=== PATIENT | female | born 1960 ===

== ENCOUNTER 2016-07-18 09:17 | Emergency (ER) | payer BC, OTHER ==
[2016-07-18 09:27] VITALS: TEMP 98
--- NOTE | 2016-07-18 10:05 | ED PDOC ---
HPI: Back Time Seen by Provider: 07/18/16 09:20 Chief Complaint (Nursing): Back Pain Chief Complaint (Provider): Back Pain History Per: Patient History/Exam Limitations: no limitations Onset/Duration Of Symptoms: Days (x1 month; worsened today) Current Symptoms Are (Timing): Still Present Additional Complaint(s): 55 y/o female with a past medical history of high cholesterol, hypertension, thyroid disease and back pain who presents to the emergency department with a complaint of left lower back pain radiating to the left leg x3 month that worsened today. Reports using hot towels and taking ibuprofen without the relief of symptoms. Denies injury, fall, numbness, tingling, incontinence, abdominal pain, constipation, chest pain, or shortness of breath. PMD: Maya SINEGR Past Medical History Reviewed: Historical Data, Nursing Documentation, Vital Signs Vital Signs: Last Vital Signs Temp 98 F 07/18/16 09:26 Pulse 99 H 07/18/16 09:26 Resp 20 07/18/16 09:26 BP 131/79 07/18/16 09:26 Pulse Ox 98 07/18/16 09:26 - Medical History PMH: Back Problems, HTN Other PMH: thyroid dz - Surgical History Surgical History: No Surg Hx - Family History Family History: States: Unknown Family Hx - Social History Current smoker - smoking cessation education provided: No Alcohol: None Drugs: Denies - Home Medications Home Medications: Ambulatory Orders Medication Instructions Recorded Ibuprofen [Motrin] 600 mg PO TID 7 Days 07/18/16 - Allergies Allergies/Adverse Reactions: Allergies Allergy/AdvReac Type Severity Reaction Status Date / Time No Known Allergies Allergy Verified 07/18/16 09:31 Review of Systems ROS Statement: Except As Marked, All Systems Reviewed And Found Negative Cardiovascular: Negative for: Chest Pain Respiratory: Negative for: Shortness of Breath Gastrointestinal: Negative for: Abdominal Pain Genitourinary Female: Negative for: Incontinence Musculoskeletal: Positive for: Back Pain (Left lower), Leg Pain (radiation pain to left leg) Neurological: Negative for: Weakness, Numbness (or tingling), Dizziness Physical Exam - Reviewed Nursing Documentation Reviewed: Yes Vital Signs Reviewed: Yes - Physical Exam Appears: Positive for: Non-toxic, No Acute Distress Head Exam: Positive for: ATRAUMATIC, NORMOCEPHALIC Skin: Positive for: Normal Color, Warm, Dry Neck: Positive for: Normal, Supple Cardiovascular/Chest: Positive for: Regular Rate, Rhythm. Negative for: Murmur Respiratory: Positive for: Normal Breath Sounds. Negative for: Accessory Muscle Use, Respiratory Distress Gastrointestinal/Abdominal: Positive for: Normal Exam, Soft. Negative for: Tenderness Back: Negative for: Normal Inspection (Mild tenderness to the left lower back pain lateral and into the buttock), L CVA Tenderness, R CVA Tenderness, Vertebral Tenderness (or edema) Extremity: Positive for: Other (Positive straight leg raise at 30 degrees left) . Negative for: Normal ROM (Negative right straight leg raise), Pedal Edema, Swelling Neurologic/Psych: Positive for: Alert, Oriented - ECG O2 Sat by Pulse Oximetry: 98 (RA) Pulse Ox Interpretation: Normal - Progress ED Course And Treament: 1058: Stable. AAOx3. Pain free. Tolerated PO. Ambulated with no issues. at bedside and will take pt. home. Medical Decision Making Medical Decision Making: Time: 9:20 Initial impression: Back Pain Initial plan: --Toradol 10 mg IM --Valium 5 mg PO --Revaluation Scribe Attestation: Documented by Ktahrin Nieves, acting as a scribe for Joseph Garza MD. Provider Scribe Attestation: All medical record entries made by the Scribe were at my direction and personally dictated by me. I have reviewed the chart and agree that the record accurately reflects my personal performance of the history, physical exam, medical decision making, and the department course for this patient. I have also personally directed, reviewed, and agree with the discharge instructions and disposition. Disposition - Clinical Impression Clinical Impression: Low back pain - Patient ED Disposition Is Patient to be Admitted: No Counseled Patient/Family Regarding: Diagnosis, Need For Followup, Rx Given - Disposition Referrals: [facility]Outside] - 07/20/16 Disposition: Routine/Home Disposition Time: 10:59 Condition: STABLE Additional Instructions: Return if not better in 3 days. Prescriptions: Ibuprofen [Motrin] 600 mg PO TID 7 Days Instructions: Chronic Back Pain (ED) Print Language: [place]LAND[place]
[2016-07-18 11:14] VITALS: BP 125/79; PULSE 81; RESP 14; O2SAT 99
== END 2016-07-18 11:10 | disposition home or self-care (01) ==
LOC: H.ER 09:17
DX: M54.9 Dorsalgia, unspecified (principal); E07.9 Disorder of thyroid, unspecified; E78.00 Pure hypercholesterolemia, unspecified; I10 Essential (primary) hypertension; M79.605 Pain in left leg

== ENCOUNTER 2016-07-24 11:28 | Emergency (ER) | payer OTHER ==
[2016-07-24 11:40] VITALS: BP 128/81; PULSE 108; RESP 18; TEMP 98.2; O2SAT 98
[2016-07-24] MEDS ORDERED: Oxycodone/Acetaminophen 5/325 mg Tab ONE (12:03)
[2016-07-24] MEDS ORDERED: Oxycodone/Acetaminophen 5/325 mg Tab PO STA (12:05)
--- NOTE | 2016-07-24 12:05 | ED PDOC ---
HPI: Back Chief Complaint (Nursing): Back Pain Chief Complaint (Provider): Back Pain History Per: Patient Additional Complaint(s): Pt is a 55 yo female, reports a PMH of HTN, presents to ED with multiple somatic complaints. Pt rpeorts the most severe are a chronic lower back pain, with pain radiatind down to left leg. Pt also notes, 'separate" pain to left ankle. Pain has been present x1 month, worsened x1 week. Denies injury. Reports taking medication, Tylenol, without relief. No chest pain or SOB at anytime. no calf pain Past Medical History Reviewed: Nursing Documentation, Vital Signs Vital Signs: Last Vital Signs Temp 98.2 F 07/24/16 11:35 Pulse 108 H 07/24/16 11:35 Resp 18 07/24/16 11:35 BP 128/81 07/24/16 11:35 Pulse Ox 98 07/24/16 11:35 - Medical History PMH: Back Problems, HTN - Family History Family History: States: Unknown Family Hx - Living Arrangements Living Arrangements: With Family - Social History Current smoker - smoking cessation education provided: No Alcohol: None Drugs: Denies - Home Medications Home Medications: Ambulatory Orders Medication Instructions Recorded Ibuprofen [Motrin] 600 mg PO TID 7 Days 07/18/16 traMADol [Ultram] 50 mg PO Q6 #15 tab 07/24/16 - Allergies Allergies/Adverse Reactions: Allergies Allergy/AdvReac Type Severity Reaction Status Date / Time No Known Allergies Allergy Verified 07/18/16 09:31 Review of Systems ROS Statement: Except As Marked, All Systems Reviewed And Found Negative Musculoskeletal: Positive for: Back Pain Physical Exam - Reviewed Nursing Documentation Reviewed: Yes Vital Signs Reviewed: Yes - Physical Exam Appears: Positive for: Well, Non-toxic, No Acute Distress Head Exam: Positive for: ATRAUMATIC, NORMAL INSPECTION, NORMOCEPHALIC Skin: Positive for: Normal Color, Warm, DRY Eye Exam: Positive for: EOMI, Normal appearance, PERRL ENT: Positive for: Normal ENT Inspection Neck: Positive for: Normal, Painless ROM Cardiovascular/Chest: Positive for: Regular Rate, Rhythm Respiratory: Positive for: CNT, Normal Breath Sounds Gastrointestinal/Abdominal: Positive for: Normal Exam, Bowel Sounds, Soft Back: Positive for: Normal Inspection. Negative for: L CVA Tenderness, R CVA Tenderness, Vertebral Tenderness Extremity: Positive for: Normal ROM. Negative for: Tenderness, Deformity, Swelling Neurologic/Psych: Positive for: Alert, Oriented - ECG O2 Sat by Pulse Oximetry: 98 Medical Decision Making Medical Decision Making: Pt administered Motrin and Percocet for pain with good relief obtained repeat pulse; 82 U.Dip (-) blood, or nites (+) Leuks UA and UC sent XR Hip, Pelvis, ankle and foot on left: NAD, as read by LUPE Pt educated on results and demonstrated full undersigning Disposition - Clinical Impression Clinical Impression: Back pain, Hip pain - Patient ED Disposition Is Patient to be Admitted: No - Disposition Disposition: Routine/Home Disposition Time: 14:49 Condition: GOOD Prescriptions: traMADol [Ultram] 50 mg PO Q6 #15 tab Instructions: Arthralgia (ED), Back Pain (ED) - POA Present On Arrival: None
--- NOTE | 2016-07-24 12:57 | RAD ---
PROCEDURE: Left Hip X-ray Radiographs. HISTORY: pain COMPARISON: None. FINDINGS: BONES: The pelvic ring is intact. No fracture. JOINTS: Normal. SOFT TISSUES: Normal. OTHER FINDINGS: None. IMPRESSION: Normal examination.
[2016-07-24 13:21] LABS: RBC URINE 3 /hpf (0-3); URINE BILIRUBIN NEGATIVE (NEGATIVE); URINE BLOOD SMALL (NEGATIVE); URINE COLOR YELLOW (YELLOW); URINE GLUCOSE (UA) NEG (Normal); URINE KETONE NEGATIVE (NEGATIVE); URINE LEUKOCYTE ESTERASE TRACE Leu/uL (Negative); URINE PROTEIN 30 mg/dL (NEGATIVE); URINE UROBILINOGEN 0.2-1.0 mg/dL (0.2-1.0); WBC URINE 10 /hpf (0-5)
--- NOTE | 2016-07-24 14:20 | RAD ---
PROCEDURE: Left Ankle Radiographs. HISTORY: Pain COMPARISON: None FINDINGS: BONES: Bone alignment and mineralization are normal. There is acute fracture or dislocation. JOINTS: Normal. No osteoarthritis. Ankle mortise maintained. Talar dome intact SOFT TISSUES: Normal. OTHER FINDINGS: None. IMPRESSION: No acute fracture or dislocation.
--- NOTE | 2016-07-24 14:21 | RAD ---
PROCEDURE: Left Foot Radiographs. HISTORY: Pain COMPARISON: None. FINDINGS: BONES: Bone alignment and mineralization are normal. There is no acute fracture or bone destruction. JOINTS: The joint spaces are preserved. SOFT TISSUES: Normal. OTHER FINDINGS: None. IMPRESSION: No acute fracture or dislocation.
== END 2016-07-24 14:58 | disposition home or self-care (01) ==
LOC: H.ER 11:28
DX: M54.9 Dorsalgia, unspecified (principal); M25.572 Pain in left ankle and joints of left foot; M79.672 Pain in left foot; M25.552 Pain in left hip; I10 Essential (primary) hypertension; G89.29 Other chronic pain

== ENCOUNTER 2016-08-03 06:04 | Inpatient (IN) | payer OTHER ==
[2016-08-03 06:04] VITALS: BMI 27.3
[2016-08-03] MEDS ORDERED: Oxycodone/Acetaminophen 5/325 mg Tab PO ONE (06:57)
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
[2016-08-03] MEDS ORDERED: Sodium Chloride 0.9% 1,000 ML IV STA (07:23)
--- NOTE | 2016-08-03 07:24 | ED PDOC ---
- ECG O2 Sat by Pulse Oximetry: 98 Disposition - Clinical Impression Clinical Impression: Closed displaced spiral fracture of shaft of left humerus - POA Present On Arrival: None - Disposition Disposition: Admitted as In-Patient Disposition Time: 07:24 Condition: FAIR
[2016-08-03 08:02] LABS: BASO # 0.1 K/uL (0.0-0.2); BASO % 0.6 % (0.0-2.0); EOS # 0.1 K/uL (0.0-0.7); EOS % 0.7 % (0.0-4.0); HEMATOCRIT 36.7 % (34.0-47.0); LYMPH # 1.1 K/uL (1.0-4.3); LYMPH % 8.3 % (20.0-40.0); MEAN CELL VOLUME 78.2 fl (81.0-99.0); MEAN CORPUSCULAR HEMOGLOBIN 26.3 pg (27.0-31.0); MEAN CORPUSCULAR HGB CONC 33.7 g/dL (33.0-37.0); MEAN PLATELET VOLUME 7.3 fl (7.2-11.7); MONO # 0.9 K/uL (0.0-0.8); MONO % 6.5 % (0.0-10.0); NEUT # 11.4 K/uL (1.8-7.0); NEUT % 83.9 % (50.0-75.0); NRBC % 0.1 % (0.0-0.0); PLATELET COUNT 422 K/uL (130-400); RED CELL DISTRIBUTION WIDTH 16.2 % (11.5-14.5); WHITE BLOOD COUNT 13.6 K/uL (4.8-10.8)
[2016-08-03 08:16] LABS: ALB/GLOB RATIO 0.7 (1.0-2.1); ALKALINE PHOSPHATASE 106 U/L (38-126); ALT/SGPT 27 U/L (9-52); AST/SGOT 36 U/L (14-36); BILIRUBIN,TOTAL 0.7 mg/dl (0.2-1.3); BLOOD UREA NITROGEN 12 mg/dl (7-17); CALCIUM 9.8 mg/dL (8.4-10.2); CARBON DIOXIDE 28 mmol/L (22-30); CHLORIDE 99 mmol/L (98-107); GFR AFRICAN-AMERICAN > 60; GLUCOSE,RANDOM 111 mg/dL (65-105); POTASSIUM 3.4 MMOL/L (3.6-5.0); SODIUM 143 mmol/l (132-148); TOTAL PROTEIN 7.8 G/DL (6.3-8.2)
[2016-08-03] MEDS ORDERED: Azithromycin 500 MG in Sodium Chloride 0.9% 250 ML IVPB STA (08:24)
[2016-08-03] MEDS ORDERED: Potassium CL 10mEq/100ml 100 ML IVPB ONE (08:56)
[2016-08-03] MEDS ORDERED: cefTRIAXone (Rocephin) 1 gm Inj ONE (09:00)
--- NOTE | 2016-08-03 09:02 | RAD ---
HISTORY: Cough, back pain. Portable supine study 07:55. COMPARISON: No prior. FINDINGS: LUNGS: Dense row lower lobe infiltrate with air bronchograms likely reflective of acute pneumonia. PLEURA: No significant pleural effusion identified, no pneumothorax apparent. CARDIOVASCULAR: Normal. OSSEOUS STRUCTURES: No significant abnormalities. VISUALIZED UPPER ABDOMEN: Normal. OTHER FINDINGS: None. IMPRESSION: Dense right lower lobe infiltrate with air bronchograms consistent with pneumonia.
[2016-08-03 10:08] LABS: VENOUS BLOOD GAS BASE EXCESS 6.1 mmol/L (0.0-2.0); VENOUS BLOOD GAS PCO2 38 mmHg (40-60)
--- NOTE | 2016-08-03 10:47 | CARD ---
APPROVED REPORT EKG Measurement Heart [id number] <Conclusion> Sinus tachycardia Otherwise normal ECG
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
[2016-08-03] MEDS: Oxycodone/Acetaminophen 5/325 mg Tab PO PRN ×3 (13:02→22:31)
[2016-08-03 14:12] LABS: BASOPHIL 1 % (0-2); NEUTROPHIL 81 % (42-75); REACTIVE LYMPHOCYTES 1 % (0-0); TOTAL CELLS COUNTED 100
--- NOTE | 2016-08-03 14:55 | CT ---
CT chest without IV contrast Indication: Pulmonary infiltrate Technique: Contiguous axial images were obtained through the chest without intravenous contrast enhancement. Sagittal and coronal reconstructions were generated and reviewed. This CT exam was performed using 1 or more of the falling dose reduction techniques: Automated exposure control, adjustment of the MAA and/or kV according to patient size, and/or use of iterative reconstruction technique. Radiation dose (DLP): 517.87 MGy-cm. Comparison: Chest x-ray performed 08/03/16 Findings: Visualized portions of the inferior thyroid gland appear unremarkable. The unenhanced mediastinal and hilar vascular structures appear grossly unremarkable. The heart appears within normal limits of size. Enlarged 1.6 cm right pretracheal lymph node (series 2, image 26). Additional enlarged pre tracheal and sub carinal adenopathy. Please note that lack of IV contrast limits evaluation for adenopathy, in particular hilar adenopathy. Small left lower lobe consolidation. Larger right middle and right lower lobe consolidations. The right middle and lower lobe bronchi appear attenuated. No pleural effusion. No pneumothorax. Limited visualization of the noncontrast upper abdomen demonstrates right adrenal gland hypertrophy. Punctate left hepatic lobe calcification, likely granuloma. Mild curvature of the thoracic spine. Impression: Enlarged 1.6 cm right pretracheal lymph node (short axis). Additional enlarged pre tracheal and sub carinal adenopathy. Please note that lack of IV contrast limits evaluation for adenopathy, in particular hilar adenopathy. Small left lower lobe consolidation. Larger right middle and lower lobe consolidations. The right middle and lower lobe bronchi appear attenuated. Atelectasis is favored, however component of pneumonia is not excluded. Recommend follow-up to ensure complete resolution and exclude underlying neoplasm. Suggest bronchoscopy if indicated.
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
[2016-08-03 19:27] LABS: RBC URINE 4 /hpf (0-3); URINE BILIRUBIN NEGATIVE (NEGATIVE); URINE BLOOD SMALL (NEGATIVE); URINE COLOR YELLOW (YELLOW); URINE GLUCOSE (UA) NEG (Normal); URINE KETONE 20 mg/dL (NEGATIVE); URINE LEUKOCYTE ESTERASE NEG Leu/uL (Negative); URINE PROTEIN NEGATIVE (NEGATIVE); URINE UROBILINOGEN 0.2-1.0 mg/dL (0.2-1.0); WBC URINE 3 /hpf (0-5)
[2016-08-03] MEDS: guaiFENesin 600 mg ER Tab PO SCH (21:24)
[2016-08-03] MEDS: Albuterol 0.083% Inhal Sol (2.5 mg/3 mL) UD INH SCH (21:51)
[2016-08-03] MEDS: Acetylcysteine 10% 4 ML IH SCH (21:51)
[2016-08-04] MEDS: Oxycodone/Acetaminophen 5/325 mg Tab PO PRN ×5 (02:20→22:38)
[2016-08-04 07:07] LABS: BASO # 0.1 K/uL (0.0-0.2); BASO % 0.5 % (0.0-2.0); EOS # 0.1 K/uL (0.0-0.7); EOS % 1.1 % (0.0-4.0); HEMATOCRIT 34.1 % (34.0-47.0); LYMPH # 1.3 K/uL (1.0-4.3); LYMPH % 11.4 % (20.0-40.0); MEAN CELL VOLUME 78.2 fl (81.0-99.0); MEAN CORPUSCULAR HEMOGLOBIN 26.4 pg (27.0-31.0); MEAN CORPUSCULAR HGB CONC 33.8 g/dL (33.0-37.0); MEAN PLATELET VOLUME 7.2 fl (7.2-11.7); MONO # 0.8 K/uL (0.0-0.8); MONO % 6.7 % (0.0-10.0); NEUT # 9.2 K/uL (1.8-7.0); NEUT % 80.3 % (50.0-75.0); NRBC % 0.1 % (0.0-0.0); RED CELL DISTRIBUTION WIDTH 16.3 % (11.5-14.5); WHITE BLOOD COUNT 11.4 K/uL (4.8-10.8)
[2016-08-04 07:17] LABS: BLOOD UREA NITROGEN 13 mg/dl (7-17); CALCIUM 9.1 mg/dL (8.4-10.2); CARBON DIOXIDE 28 mmol/L (22-30); CHLORIDE 102 mmol/L (98-107); CHOLESTEROL 182 mg/dL (0-199); GFR AFRICAN-AMERICAN > 60; GLUCOSE,RANDOM 105 mg/dL (65-105); POTASSIUM 3.6 MMOL/L (3.6-5.0); SODIUM 142 mmol/l (132-148)
[2016-08-04 07:47] LABS: THYROID STIMULATING HORMONE 8.09 mIU/ML (0.46-4.68)
[2016-08-04] MEDS: Acetylcysteine 10% 4 ML IH SCH ×2 (07:50→20:01)
[2016-08-04] MEDS: Albuterol 0.083% Inhal Sol (2.5 mg/3 mL) UD INH SCH ×2 (07:50→20:01)
[2016-08-04] MEDS ORDERED: Azithromycin 500 MG in Sodium Chloride 0.9% 250 ML IVPB SCH (09:00)
[2016-08-04] MEDS: guaiFENesin 600 mg ER Tab PO SCH ×2 (09:19→21:15)
[2016-08-04] MEDS: Enoxaparin 40 mg Syringe SC SCH (09:19)
[2016-08-04] MEDS: Pantoprazole 40 mg EC Tab PO SCH (09:20)
--- NOTE | 2016-08-04 09:46 | CARD ---
APPROVED REPORT EXAM: Two-dimensional and M-mode echocardiogram with Doppler and color Doppler. Other Information Quality : AverageRhythm : Tachycardia Technically limited study due to Fractured Lt Arm. INDICATION Pre-Op 2D DIMENSIONS IVSd0.89 (0.7-1.1cm)LVDd4.13 (3.9-5.9cm) LVOT Diameter1.84 (1.8-2.4cm)PWd0.83 (0.7-1.1cm) IVSs1.11 (0.8-1.2cm)LVDs2.44 (2.5-4.0cm) FS (%) 41.0 %PWs1.28 (0.8-1.2cm) M-Mode DIMENSIONS Left Atrium (MM)2.99 (2.5-4.0cm)IVSd0.90 (0.7-1.1cm) Aortic Root2.57 (2.2-3.7cm)LVDd4.17 (4.0-5.6cm) Aortic Cusp Exc.1.85 (1.5-2.0cm)PWd1.08 (0.7-1.1cm) IVSs1.52 cmFS (%) 48 % LVDs2.19 (2.0-3.8cm)PWs1.54 cm Mitral Valve E/A ratio0.0 TDI E/Lateral E'0.0E/Medial E'0.0 Pulmonary Valve PV Peak Useyohrb567.5cm/s LEFT VENTRICLE The left ventricle is normal size. There is normal left ventricular wall thickness. Left ventricle systolic function is normal. The Ejection Fraction is >70%. There is normal LV segmental wall motion. Transmitral Doppler flow pattern is Grade I-abnormal relaxation pattern. RIGHT VENTRICLE The right ventricle is normal size. There is normal right ventricular wall thickness. The right ventricular systolic function is normal. ATRIA The left atrium size is normal. The right atrium size is normal. AORTIC VALVE The aortic valve is normal in structure and function. No aortic regurgitation is present. There is no aortic valvular stenosis. MITRAL VALVE The mitral valve is normal in structure and function. There is no evidence of mitral valve prolapse. There is no mitral valve stenosis. There is no mitral valve regurgitation noted. TRICUSPID VALVE The tricuspid valve is normal in structure and function. There is no tricuspid valve regurgitation noted. PULMONIC VALVE The pulmonary valve is normal in structure and function. There is no pulmonic valvular regurgitation. GREAT VESSELS The aortic root is normal in size. Due to poor image quality, the IVC could not be assessed. PERICARDIAL EFFUSION The pericardium appears normal. <Conclusion> Suboptimal images due to a bandaged and painful Lt upper arm The left ventricle is normal size. There is normal left ventricular wall thickness. There is normal LV segmental wall motion. Left ventricle systolic function is normal. The Ejection Fraction is >70%. Transmitral Doppler flow pattern is Grade I-abnormal relaxation pattern.
--- NOTE | 2016-08-04 10:20 | CP.PCM.PN ---
Subjective - Date & Time of Evaluation Date of Evaluation: 08/04/16 Time of Evaluation: 10:14 - Subjective Subjective: Her son is present at the bedside. She appears relatively comfortable while immobile. Her vital signs have been stable and she remains afebrile. Her leukocytosis has decreased slightly. As per her son she has been expectorating small quantities of yellow/green, purulent appearing sputum. She does not complain of shortness of breath or chest pain. Anteriorly the lungs are clear on auscultation. Posteriorly there are few rales in the right lower lobe w/o bronchial breath sounds today. There are no wheezes or egophony today (the latter was present in the RLL yesterday). A repeat CXR is scheduled for tomorrow. She does appear to be stable for surgical intervention of the LUE. Will start incentive spirometry today. As far as I can see in the EMR she has received only one aerosol treatment last night, and CPT has not yet been started. I will speak to her nurse regarding this. Objective - Vital Signs/Intake and Output Vital Signs (last 24 hours): Temp Pulse Resp BP Pulse Ox 98.3 F 96 H 18 138/83 95 08/04/16 08:05 08/04/16 08:05 08/04/16 08:05 08/04/16 08:05 08/04/16 08:05 - Medications Medications: Current Medications Acetylcysteine (Mucomyst 10% 4ml) 2 ml IH RBID [facility] Last Admin: 08/04/16 07:50 Dose: 2 ml Albuterol Sulfate (Albuterol 0.083% Inhal Martha (2.5 Mg/3 Ml) Ud) 2.5 mg INH RBID [facility] Last Admin: 08/04/16 07:50 Dose: 2.5 mg Enoxaparin Sodium (Lovenox) 40 mg SC DAILY [facility] PRN Reason: Protocol Last Admin: 08/04/16 09:19 Dose: 40 mg Guaifenesin (Mucinex La) 600 mg PO Q12 [facility] Last Admin: 08/04/16 09:19 Dose: 600 mg Azithromycin 500 mg/ Sodium (Chloride) 250 mls @ 250 mls/hr IVPB DAILY [facility] Ceftriaxone Sodium 1 gm/ (Sodium Chloride) 100 mls @ 100 mls/hr IVPB DAILY [facility] Last Admin: 08/04/16 09:20 Dose: 100 mls/hr Azithromycin 500 mg/ Sodium (Chloride) 250 mls @ 250 mls/hr IVPB DAILY [facility] Oxycodone/Acetaminophen (Percocet 5/325 Mg Tab) 1 tab PO Q4 PRN PRN Reason: Pain, moderate (4-7) Stop: 08/06/16 12:12 Last Admin: 08/04/16 02:20 Dose: 1 tab Pantoprazole Sodium (Protonix Ec Tab) 40 mg PO DAILY [facility] Last Admin: 08/04/16 09:20 Dose: 40 mg - Labs Labs: 08/04/16 05:30 08/04/16 05:30 PT 12.2 SECONDS (9.6-11.2) H 08/03/16 07:36 INR 1.17 (0.92-1.08) H 08/03/16 07:36 Assessment and Plan (1) Atelectasis, right Status: Acute (2) Pneumonia Status: Acute
[2016-08-04] MEDS: Azithromycin 500 MG in Sodium Chloride 0.9% 250 ML IVPB SCH (10:31)
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
[2016-08-05] MEDS: Oxycodone/Acetaminophen 5/325 mg Tab PO PRN ×5 (02:40→23:55)
[2016-08-05] MEDS: Acetylcysteine 10% 4 ML IH SCH ×2 (08:22→19:40)
[2016-08-05] MEDS: Albuterol 0.083% Inhal Sol (2.5 mg/3 mL) UD INH SCH ×2 (08:22→19:40)
[2016-08-05] MEDS: guaiFENesin 600 mg ER Tab PO SCH ×3 (09:04→20:29)
[2016-08-05] MEDS: Enoxaparin 40 mg Syringe SC SCH ×2 (09:04→09:50)
[2016-08-05] MEDS: Azithromycin 500 MG in Sodium Chloride 0.9% 250 ML IVPB SCH ×2 (09:05→11:26)
[2016-08-05] MEDS: Pantoprazole 40 mg EC Tab PO SCH ×2 (09:05→09:51)
--- NOTE | 2016-08-05 12:22 | RAD ---
PROCEDURE: CHEST RADIOGRAPH, 1 VIEW HISTORY: PNA COMPARISON: 08/03/2016 FINDINGS: LUNGS: Opacity at right lung base. Likely pleural effusion and superimposed pulmonary consolidation. In comparison to the prior plain chest radiograph, the opacity at the right base has increased in extent, likely due in part to increasing pleural effusion. No left-sided pulmonary opacity. PLEURA: Right pleural effusion. No evidence of left pleural effusion. CARDIOVASCULAR: Normal. OSSEOUS STRUCTURES: No significant abnormalities. VISUALIZED UPPER ABDOMEN: Normal. OTHER FINDINGS: None. IMPRESSION: Increasing opacity at right base likely due to superimposed pleural effusion with underlying consolidation.
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
--- NOTE | 2016-08-05 14:44 | CP.PCM.PN ---
Subjective - Date & Time of Evaluation Date of Evaluation: 08/05/16 Time of Evaluation: 14:42 - Subjective Subjective: Patient vital signs have remained stable. Her chest x-ray shows a persistent RLL infiltrate. She is clinically stable and cleared for proposed orthopedic surgery. Objective - Vital Signs/Intake and Output Vital Signs (last 24 hours): Temp Pulse Resp BP Pulse Ox 98.7 F 93 H 18 137/83 96 08/05/16 07:36 08/05/16 07:36 08/05/16 07:36 08/05/16 07:36 08/05/16 07:36 - Medications Medications: Current Medications Acetylcysteine (Mucomyst 10% 4ml) 2 ml IH RBID [facility] Last Admin: 08/05/16 08:22 Dose: 2 ml Albuterol Sulfate (Albuterol 0.083% Inhal Martha (2.5 Mg/3 Ml) Ud) 2.5 mg INH RBID [facility] Last Admin: 08/05/16 08:22 Dose: 2.5 mg Atorvastatin Calcium (Lipitor) 20 mg PO DAILY [facility] Last Admin: 08/05/16 09:51 Dose: 20 mg Enoxaparin Sodium (Lovenox) 40 mg SC DAILY [facility] PRN Reason: Protocol Last Admin: 08/05/16 09:50 Dose: 40 mg Guaifenesin (Mucinex La) 600 mg PO Q12 [facility] Last Admin: 08/05/16 09:52 Dose: 600 mg Azithromycin 500 mg/ Sodium (Chloride) 250 mls @ 250 mls/hr IVPB DAILY [facility] Last Admin: 08/05/16 11:26 Dose: 250 mls/hr Ceftriaxone Sodium 1 gm/ (Sodium Chloride) 100 mls @ 100 mls/hr IVPB DAILY [facility] Last Admin: 08/05/16 09:51 Dose: 100 mls/hr Oxycodone/Acetaminophen (Percocet 5/325 Mg Tab) 1 tab PO Q4 PRN PRN Reason: Pain, moderate (4-7) Stop: 08/06/16 12:12 Last Admin: 08/05/16 09:47 Dose: 1 tab Pantoprazole Sodium (Protonix Ec Tab) 40 mg PO DAILY [facility] Last Admin: 08/05/16 09:51 Dose: 40 mg - Labs Labs: PT 12.2 SECONDS (9.6-11.2) H 08/03/16 07:36 INR 1.17 (0.92-1.08) H 08/03/16 07:36 Assessment and Plan (1) Atelectasis, right Status: Acute (2) Pneumonia Status: Acute
--- NOTE | 2016-08-05 16:21 | RAD ---
PROCEDURE: Radiographs of the Lumbar Spine. HISTORY: low back pain radiating to the thighs COMPARISON: No prior. FINDINGS: BONES: Technically limited examination. Vertebral bodies are maintained in height. Transverse processes and posterior elements are intact. No evidence of spondylolysis or spondylolisthesis. Incidentally noted partially lumbar iced S1 vertebra. DISC SPACES: Unremarkable. OTHER FINDINGS: None. IMPRESSION: No fracture or degenerative disc disease noted
--- NOTE | 2016-08-05 16:37 | CP.PCM.PN ---
Subjective - Date & Time of Evaluation Date of Evaluation: 08/05/16 Time of Evaluation: 10:00 - Subjective Subjective: NO CHEST PAIN Objective - Vital Signs/Intake and Output Vital Signs (last 24 hours): Temp Pulse Resp BP Pulse Ox 98.7 F 93 H 18 137/83 96 08/05/16 07:36 08/05/16 07:36 08/05/16 07:36 08/05/16 07:36 08/05/16 07:36 - Medications Medications: Current Medications Acetylcysteine (Mucomyst 10% 4ml) 2 ml IH RBID [facility] Last Admin: 08/05/16 08:22 Dose: 2 ml Albuterol Sulfate (Albuterol 0.083% Inhal Martha (2.5 Mg/3 Ml) Ud) 2.5 mg INH RBID [facility] Last Admin: 08/05/16 08:22 Dose: 2.5 mg Atorvastatin Calcium (Lipitor) 20 mg PO DAILY [facility] Last Admin: 08/05/16 09:51 Dose: 20 mg Guaifenesin (Mucinex La) 600 mg PO Q12 [facility] Last Admin: 08/05/16 09:52 Dose: 600 mg Azithromycin 500 mg/ Sodium (Chloride) 250 mls @ 250 mls/hr IVPB DAILY [facility] Last Admin: 08/05/16 11:26 Dose: 250 mls/hr Ceftriaxone Sodium 1 gm/ (Sodium Chloride) 100 mls @ 100 mls/hr IVPB DAILY [facility] Last Admin: 08/05/16 09:51 Dose: 100 mls/hr Oxycodone/Acetaminophen (Percocet 5/325 Mg Tab) 1 tab PO Q4 PRN PRN Reason: Pain, moderate (4-7) Stop: 08/06/16 12:12 Last Admin: 08/05/16 14:59 Dose: 1 tab Pantoprazole Sodium (Protonix Ec Tab) 40 mg PO DAILY [facility] Last Admin: 08/05/16 09:51 Dose: 40 mg - Labs Labs: PT 12.2 SECONDS (9.6-11.2) H 08/03/16 07:36 INR 1.17 (0.92-1.08) H 08/03/16 07:36 - Respiratory Exam Respiratory Exam: Rales - Cardiovascular Exam Cardiovascular Exam: REGULAR RHYTHM, +S1, +S2 Assessment and Plan - Assessment and Plan (Free Text) Assessment: LEFT HUMERUS FRACTURE PNEUMONIA HYPERLIPIDEMIA Plan: CONTINUE ANTIBIOTICS AND ATORVASTATIN PT IS CLEARED FROM CARDIAC [facility]IEWPOINT FOR ORTHOPEDIC SURGERY
[2016-08-06] MEDS ORDERED: Succinylcholine 200 mg/10 ml Inj IV ONE (07:07)
[2016-08-06] MEDS ORDERED: Midazolam 2 MG/2 ML VIAL ONE (07:07)
[2016-08-06] MEDS ORDERED: Propofol 10 mg/ml Inj (20 ML) ONE (07:07)
[2016-08-06] MEDS ORDERED: Sevoflurane - Inhalation Anesthetic Liq (250 ml) ONE (07:08)
[2016-08-06] MEDS ORDERED: Rocuronium 10 mg/ml (5 ml) ONE (07:08)
[2016-08-06] MEDS ORDERED: Neostigmine Methylsulfate 2 MG/2 ML ML IV ONE (07:08)
[2016-08-06] MEDS ORDERED: Lidocaine Hydrochloride 5 ML INJ ONE (07:08)
[2016-08-06] MEDS ORDERED: Bupivacaine 0.5% Inj(30mL) ONE (07:33)
[2016-08-06] MEDS ORDERED: Absorbable Gelatin Sponge Size 100 ONE (07:34)
[2016-08-06] MEDS ORDERED: Bacitracin Ointment 30 GM TUBE ONE (07:34)
[2016-08-06] MEDS ORDERED: Thrombin Topical 5,000 IU Spray Kit ONE (07:34)
[2016-08-06] MEDS: Albuterol 0.083% Inhal Sol (2.5 mg/3 mL) UD INH SCH ×2 (07:38→19:49)
[2016-08-06] MEDS: Acetylcysteine 10% 4 ML IH SCH ×2 (07:38→19:49)
[2016-08-06 07:45] LABS: BASO # 0.1 K/uL (0.0-0.2); BASO % 0.6 % (0.0-2.0); EOS # 0.2 K/uL (0.0-0.7); EOS % 1.3 % (0.0-4.0); LYMPH # 1.3 K/uL (1.0-4.3); LYMPH % 10.6 % (20.0-40.0); MEAN CELL VOLUME 78.4 fl (81.0-99.0); MEAN CORPUSCULAR HEMOGLOBIN 25.5 pg (27.0-31.0); MEAN CORPUSCULAR HGB CONC 32.6 g/dL (33.0-37.0); MONO # 0.9 K/uL (0.0-0.8); MONO % 7.1 % (0.0-10.0); NEUT # 9.7 K/uL (1.8-7.0); NEUT % 80.4 % (50.0-75.0); RED CELL DISTRIBUTION WIDTH 16.3 % (11.5-14.5); WHITE BLOOD COUNT 12.1 K/uL (4.8-10.8)
[2016-08-06 08:17] LABS: BLOOD UREA NITROGEN 10 mg/dl (7-17); CALCIUM 9.4 mg/dL (8.4-10.2); CARBON DIOXIDE 28 mmol/L (22-30); CHLORIDE 99 mmol/L (98-107); GFR AFRICAN-AMERICAN > 60; GLUCOSE,RANDOM 107 mg/dL (65-105); POTASSIUM 3.4 MMOL/L (3.6-5.0); SODIUM 139 mmol/l (132-148)
[2016-08-06 08:20] LABS: T4 6.52 ug/dl (5.5-11.0)
[2016-08-06 08:34] LABS: THYROID STIMULATING HORMONE 7.99 mIU/ML (0.46-4.68)
[2016-08-06] MEDS ORDERED: Potassium Chl 20 mEq in NS 1,000 ML IV SCH (08:45)
[2016-08-06] MEDS ORDERED: Lactated Ringer's 1,000 ML IV ONE (09:30)
[2016-08-06] MEDS ORDERED: EPINEPHrine 1 mg/ml (1:1000) Inj ONE (09:32)
[2016-08-06] MEDS ORDERED: Sodium Chloride 0.9% 1,000 ML IV ONE (09:45)
[2016-08-06] MEDS ORDERED: Phenylephrine 10 mg/ml Inj ONE (10:08)
[2016-08-06] MEDS: guaiFENesin 600 mg ER Tab PO SCH ×2 (10:13→22:00)
[2016-08-06] MEDS: Levothyroxine 50 MCG TAB PO SCH (10:15)
[2016-08-06] MEDS: Azithromycin 500 MG in Sodium Chloride 0.9% 250 ML IVPB SCH (10:15)
[2016-08-06] MEDS: Pantoprazole 40 mg EC Tab PO SCH (10:15)
--- NOTE | 2016-08-06 10:47 | CP.PCM.PN ---
Subjective - Date & Time of Evaluation Date of Evaluation: 08/06/16 Time of Evaluation: 08:00 - Subjective Subjective: NO CHEST PAIN Objective - Vital Signs/Intake and Output Vital Signs (last 24 hours): Temp Pulse Resp BP Pulse Ox 98.7 F 107 H 18 149/83 95 08/06/16 07:26 08/06/16 07:26 08/06/16 07:26 08/06/16 07:26 08/06/16 07:26 - Medications Medications: Current Medications Acetylcysteine (Mucomyst 10% 4ml) 2 ml IH RBID [facility] Last Admin: 08/06/16 07:38 Dose: 2 ml Albuterol Sulfate (Albuterol 0.083% Inhal Martha (2.5 Mg/3 Ml) Ud) 2.5 mg INH RBID [facility] Last Admin: 08/06/16 07:38 Dose: 2.5 mg Atorvastatin Calcium (Lipitor) 20 mg PO DAILY [facility] Last Admin: 08/06/16 10:13 Dose: Not Given Guaifenesin (Mucinex La) 600 mg PO Q12 [facility] Last Admin: 08/06/16 10:13 Dose: Not Given Azithromycin 500 mg/ Sodium (Chloride) 250 mls @ 250 mls/hr IVPB DAILY [facility] Last Admin: 08/06/16 10:15 Dose: Not Given Ceftriaxone Sodium 1 gm/ (Sodium Chloride) 100 mls @ 100 mls/hr IVPB DAILY [facility] Last Admin: 08/06/16 08:12 Dose: 100 mls/hr Potassium Chloride/Sodium Chloride (Potassium Chl 20 Meq In Ns) 1,000 mls @ 99.01 mls/hr IV .Q10H6M [facility] Stop: 08/07/16 08:42 Last Admin: 08/06/16 10:14 Dose: Not Given Levothyroxine Sodium (Synthroid) 50 mcg PO DAILY@0630 [facility] Last Admin: 08/06/16 10:15 Dose: Not Given Oxycodone/Acetaminophen (Percocet 5/325 Mg Tab) 1 tab PO Q4 PRN PRN Reason: Pain, moderate (4-7) Stop: 08/06/16 12:12 Last Admin: 08/05/16 23:55 Dose: 1 tab Pantoprazole Sodium (Protonix Ec Tab) 40 mg PO DAILY [facility] Last Admin: 08/06/16 10:15 Dose: Not Given - Labs Labs: 08/06/16 06:50 08/06/16 06:50 PT 12.4 SECONDS (9.6-11.2) H 08/06/16 06:50 INR 1.19 (0.92-1.08) H 08/06/16 06:50 APTT 32.0 SECONDS (23.3-32.5) 08/06/16 06:50 - Respiratory Exam Respiratory Exam: Rales - Cardiovascular Exam Cardiovascular Exam: REGULAR RHYTHM, +S1, +S2 Assessment and Plan - Assessment and Plan (Free Text) Assessment: LEFT HUMERUS FRACTURE HYPERLIPIDEMIA PMEUMONIA Plan: CONTINUE ANTIBIOTICS AND ATORVASTATIN FOR ORTHOPEDIC SURGERY
--- NOTE | 2016-08-06 11:56 | PCM.SURG1 ---
Surgeon's Initial Post Op Note - Surgeon's Notes Surgeon: Olvin Park Keeper: RAVEN Sanchez/ 2nd assist Eugenio Fregoso Type of Anesthesia: General Endo Anesthesia Administered By: Florence Talamantes Pre-Operative Diagnosis: Displaced L humerus fx. radail neurapraxia L brachium Operative Findings: L humeral shaft fx. Radial nerve neurapraxia Post-Operative Diagnosis: as above Operation Performed: ORIF L humeral shaft fx. Radial nerve exploration/ radfial neurolysis Specimen/Specimens Removed: fx callous Estimated Blood Loss: EBL {In ML}: 35 Blood Products Given: N/A Drains Used: No Drains Post-Op Condition: Good Date of Surgery/Procedure: 08/06/16 Time of Surgery/Procedure: 10:25 (time in room/anaesthesia indcutioon time- 9:30 )
[2016-08-06] MEDS ORDERED: HYDROmorphone 0.5 mg/0.5 ml ISec IVP PRN (12:03)
[2016-08-06] MEDS ORDERED: Bupivacaine HCl 0.5% PF (30 ml) Inj ONE (12:06)
[2016-08-06] MEDS ORDERED: Lidocaine 2% MPF (5 ml) Inj ONE (12:07)
[2016-08-06] MEDS ORDERED: Potassium Chloride 20 mEq ER Tab PO ONE ×2 (12:10→15:31)
[2016-08-06] MEDS ORDERED: Sodium Chloride 0.9% 1,000 ML IV SCH (12:15)
--- NOTE | 2016-08-06 12:50 | CP.PCM.CON ---
History of Present Illness - History of Present Illness History of Present Illness: psychiatry consult ordered by dr. mcgee reason: depression pt is away at surgery. will see tomorrow. Past Patient History - Past Medical History & Family History Past Medical History?: Yes - Past Social History Alcohol: None Drugs: Denies - CARDIAC Hx Hypercholesterolemia: Yes Hx Hypertension: Yes - PULMONARY Hx Respiratory Disorders: No - NEUROLOGICAL Hx Neurological Disorder: No - HEENT Hx HEENT Problems: No - RENAL Hx Chronic Kidney Disease: No - ENDOCRINE/METABOLIC Hx Hypothyroidism: Yes - HEMATOLOGICAL/ONCOLOGICAL Hx Blood Disorders: No - INTEGUMENTARY Hx Dermatological Problems: No - MUSCULOSKELETAL/RHEUMATOLOGICAL Hx Musculoskeletal Disorders: Yes Hx Back Pain: Yes Hx Falls: Yes - GASTROINTESTINAL Hx Gastrointestinal Disorders: No - GENITOURINARY/GYNECOLOGICAL Hx Genitourinary Disorders: No - PSYCHIATRIC Hx Psychophysiologic Disorder: No Hx Substance Use: No - SURGICAL HISTORY Hx Surgeries: No - ANESTHESIA Hx Anesthesia: No Hx Anesthesia Reactions: No Hx Malignant Hyperthermia: No Has any member of the family had a problem w/ anesthesia?: No Meds Allergies/Adverse Reactions: Allergies Allergy/AdvReac Type Severity Reaction Status Date / Time No Known Allergies Allergy Verified 07/18/16 09:31 - Medications Medications: Current Medications Acetylcysteine (Mucomyst 10% 4ml) 2 ml IH RBID [facility] Last Admin: 08/06/16 07:38 Dose: 2 ml Albuterol Sulfate (Albuterol 0.083% Inhal Martha (2.5 Mg/3 Ml) Ud) 2.5 mg INH RBID [facility] Last Admin: 08/06/16 07:38 Dose: 2.5 mg Atorvastatin Calcium (Lipitor) 20 mg PO DAILY [facility] Last Admin: 08/06/16 10:13 Dose: Not Given Guaifenesin (Mucinex La) 600 mg PO Q12 [facility] Last Admin: 08/06/16 10:13 Dose: Not Given Hydromorphone HCl (Dilaudid) 0.5 mg IVP Q10M PRN PRN Reason: Pain, moderate (4-7) Stop: 08/06/16 14:04 Last Admin: 08/06/16 12:10 Dose: 0.5 mg Azithromycin 500 mg/ Sodium (Chloride) 250 mls @ 250 mls/hr IVPB DAILY [facility] Last Admin: 08/06/16 10:15 Dose: Not Given Ceftriaxone Sodium 1 gm/ (Sodium Chloride) 100 mls @ 100 mls/hr IVPB DAILY [facility] Last Admin: 08/06/16 08:12 Dose: 100 mls/hr Potassium Chloride/Sodium Chloride (Potassium Chl 20 Meq In Ns) 1,000 mls @ 99.01 mls/hr IV .Q10H6M [facility] Stop: 08/07/16 08:42 Last Admin: 08/06/16 10:14 Dose: Not Given Cefazolin Sodium 1 gm/ Sodium (Chloride) 100 mls @ 100 mls/hr IVPB Q8 [facility] Stop: 08/07/16 01:59 Lactated Ringer's (Lactated Ringer's) 1,000 mls @ 50 mls/hr IV .Q20H [facility] Sodium Chloride (Sodium Chloride 0.9%) 1,000 mls @ 100 mls/hr IV .Q10H [facility] Levothyroxine Sodium (Synthroid) 50 mcg PO DAILY@0630 [facility] Last Admin: 08/06/16 10:15 Dose: Not Given Ondansetron HCl (Zofran Inj) 4 mg IVP ONCE PRN PRN Reason: Nausea/Vomiting Stop: 08/06/16 14:04 Pantoprazole Sodium (Protonix Ec Tab) 40 mg PO DAILY [facility] Last Admin: 08/06/16 10:15 Dose: Not Given Results - Vital Signs Recent Vital Signs: Last Vital Signs Temp 97.8 F 08/06/16 12:10 Pulse 98 H 08/06/16 12:10 Resp 18 08/06/16 12:10 BP 130/72 08/06/16 12:10 Pulse Ox 100 08/06/16 12:10 - Labs Result Diagrams: 08/06/16 06:50 08/06/16 06:50 Labs: Laboratory Results - last 24 hr 08/06/16 08/06/16 08/06/16 06:50 06:50 06:50 WBC 12.1 H RBC 4.46 Hgb 11.4 L Hct 35.0 MCV 78.4 L MCH 25.5 L MCHC 32.6 L RDW 16.3 H Plt Count 442 H MPV 7.0 L Neut % (Auto) 80.4 H Lymph % (Auto) 10.6 L [place] % (Auto) 7.1 Eos % (Auto) 1.3 Baso % (Auto) 0.6 Neut # 9.7 H Lymph # 1.3 [place] # 0.9 H Eos # 0.2 Baso # 0.1 PT 12.4 H INR 1.19 H APTT 32.0 Sodium 139 Potassium 3.4 L Chloride 99 Carbon Dioxide 28 Anion Gap 15 BUN 10 Creatinine 0.6 L Est GFR ( Amer) > 60 Est GFR (Non-Af Amer) > 60 Random Glucose 107 H Calcium 9.4 Thyroxine (T4) 6.52 Total T3 0.793 L TSH 3rd Generation 7.99 H
--- NOTE | 2016-08-06 12:53 | PCM.ANESB4 ---
Infraclavicular Block - Femoral Nerve Block Date of Procedure: 08/06/16 Anesthesiologist: Dr. Talamantes Pre-Procedure Diagnosis: ORIF Left humeral fracture Post-Procedure Diagnosis: ORIF Left humeral fracture Procedure Performed: Brachial Plexus at the Infraclavicular area Left - Procedure Infraclavicular Block: The procedure was explained to the patient that it is for the post-operative pain management. Consent was obtained after a thorough discussion with the patient regarding the benefits and possible complications of local anesthetic block of the brachial plexus at the infraclavicular area. The patient was brought to the operating room and surgery was performed. After the surgery, patient was transferred to PACU. Upon awakening from anesthesia, sensory and motor integrity of the left upper extremity was evaluated. Patient was able to feel/move all four fingers and hand. Time-out was held with the nurse to confirm the correct side and the appropriate block. With oxygen by nasal cannula and standard monitors in place, patient's head was gently rotated away from the operative left shoulder and the area medial to the coracoid process and inferior to the clavicle was carefully palpated. The ultrasound transducer was then applied to the skin in the transverse plane and the brachial plexus was visualized surrounding the axillary artery and deep to the pectoralis major and minor muscles. After thorough identification, this area was prepped with chloraprep solution and 1 % Lidocaine was injected subcutaneously for topical anesthesia. At this point, a #21 gauge Stimuplex 4-inch needle was inserted cephalad to the ultrasound transducer and inferior to the clavicle in-plane towards the posterior aspect of the axillary artery. Needle advancement was performed carefully under ultrasound visualization. After repeated negative aspiration, 5cc of 0.5% bupivacaine was injected and this was followed with 25cc of 0.5% bupivacaine. Under ultrasound guidance the local anesthetics were observed surrounding the cords of the brachial plexus. The needle was removed intact and sterile dressing was applied. The patient had stable vital signs, was conscious and in no apparent distress. The patient tolerated the infraclavicular block of the brachial plexus well with stable vital signs was prepared for subsequent surgery.
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
[2016-08-06] MEDS: Lactated Ringer's 1,000 ML IV SCH (16:18)
[2016-08-06] MEDS: ceFAZolin 1 GM in Sodium Chloride 0.9% 100 ML IVPB SCH (17:18)
--- NOTE | 2016-08-06 19:01 | RAD ---
PROCEDURE: Fluoroscopy greater than 1 hour HISTORY: LEFT HUMERUS COMPARISON: None TECHNIQUE: Standard protocol for this study/examination. FINDINGS: Submitted images from the current procedure: 2.0 IMPRESSION: Total fluoroscopic time (continuous mode) utilized during the procedure: 1.7 seconds.
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
[2016-08-07] MEDS: ceFAZolin 1 GM in Sodium Chloride 0.9% 100 ML IVPB SCH ×2 (00:24→09:32)
[2016-08-07] MEDS: Levothyroxine 50 MCG TAB PO SCH ×2 (06:42→10:18)
[2016-08-07] MEDS: Acetylcysteine 10% 4 ML IH SCH ×2 (07:12→19:23)
[2016-08-07] MEDS: Albuterol 0.083% Inhal Sol (2.5 mg/3 mL) UD INH SCH ×2 (07:12→19:23)
[2016-08-07 08:08] LABS: HEMATOCRIT 30.7 % (34.0-47.0); MEAN CELL VOLUME 78.6 fl (81.0-99.0); MEAN CORPUSCULAR HEMOGLOBIN 26.5 pg (27.0-31.0); MEAN CORPUSCULAR HGB CONC 33.7 g/dL (33.0-37.0); RED CELL DISTRIBUTION WIDTH 16.4 % (11.5-14.5); WHITE BLOOD COUNT 10.3 K/uL (4.8-10.8)
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
[2016-08-07 08:31] LABS: BLOOD UREA NITROGEN 13 mg/dl (7-17); CALCIUM 8.6 mg/dL (8.4-10.2); CARBON DIOXIDE 26 mmol/L (22-30); CHLORIDE 101 mmol/L (98-107); GFR AFRICAN-AMERICAN > 60; GLUCOSE,RANDOM 95 mg/dL (65-105); POTASSIUM 3.5 MMOL/L (3.6-5.0); SODIUM 134 mmol/l (132-148)
[2016-08-07] MEDS: Pantoprazole 40 mg EC Tab PO SCH ×2 (09:31→10:12)
[2016-08-07] MEDS: guaiFENesin 600 mg ER Tab PO SCH ×3 (09:31→21:54)
[2016-08-07] MEDS: Azithromycin 500 MG in Sodium Chloride 0.9% 250 ML IVPB SCH (09:38)
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
[2016-08-07] MEDS ORDERED: Enoxaparin 40 mg Syringe SC STA (09:48)
--- NOTE | 2016-08-07 10:03 | CP.PCM.PN ---
Subjective - Date & Time of Evaluation Date of Evaluation: 08/07/16 Time of Evaluation: 09:49 - Subjective Subjective: The patient had been tentatively scheduled for flexible bronchoscopy today, but when seen on rounds it was noted that she was able to expectorate thick yellowish colored mucopurulent secretions. This had been repeated a few times over since yesterday w/o SOB. Her vital signs have been stable and she remains afebrile. Her leukocytosis has resolved. On exam there are improved breath sounds in the RLL region posteriorly with audible rhonchi but no wheezes or bronchial breathing. During deep breathing for the exam she was again able to expectorate another thick gregg colored plug as well. The bronchoscopy for today will be cancelled and a chest x-ray has been requested. If there is indication that this area of atelectasis shows signs of re- expansion there would be no reason to perform FFB. If there is continued collapse of the RLL/RML the FFB has been tentatively scheduled for 9:45 Wednesday morning. Continue aerosol therapy with acetylcysteine/albuterol BID. Continue guaifenesin tabs 600MG BID. Continue CPT and incentive spirometry. Objective - Vital Signs/Intake and Output Vital Signs (last 24 hours): Temp Pulse Resp BP Pulse Ox 98.8 F 110 H 20 127/76 93 L 08/07/16 08:16 08/07/16 08:16 08/07/16 08:16 08/07/16 08:16 08/07/16 08:16 Intake and Output: 08/06/16 08/07/16 23:59 11:59 Intake Total 200 Balance 200 - Medications Medications: Current Medications Acetylcysteine (Mucomyst 10% 4ml) 2 ml IH RBID [facility] Last Admin: 08/07/16 07:12 Dose: 2 ml Albuterol Sulfate (Albuterol 0.083% Inhal Martha (2.5 Mg/3 Ml) Ud) 2.5 mg INH RBID [facility] Last Admin: 08/07/16 07:12 Dose: 2.5 mg Atorvastatin Calcium (Lipitor) 20 mg PO DAILY [facility] Last Admin: 08/07/16 09:30 Dose: Not Given Enoxaparin Sodium (Lovenox) 40 mg SC STAT STA PRN Reason: Protocol Stop: 08/07/16 09:49 Enoxaparin Sodium (Lovenox) 40 mg SC DAILY [facility] PRN Reason: Protocol Stop: 08/09/16 09:01 Guaifenesin (Mucinex La) 600 mg PO Q12 [facility] Last Admin: 08/07/16 09:31 Dose: Not Given Azithromycin 500 mg/ Sodium (Chloride) 250 mls @ 250 mls/hr IVPB DAILY [facility] Last Admin: 08/07/16 09:38 Dose: 250 mls/hr Ceftriaxone Sodium 1 gm/ (Sodium Chloride) 100 mls @ 100 mls/hr IVPB DAILY [facility] Last Admin: 08/06/16 08:12 Dose: 100 mls/hr Lactated Ringer's (Lactated Ringer's) 1,000 mls @ 50 mls/hr IV .Q20H [facility] Last Admin: 08/06/16 16:18 Dose: 50 mls/hr Sodium Chloride (Sodium Chloride 0.9%) 1,000 mls @ 100 mls/hr IV .Q10H [facility] Last Admin: 08/07/16 06:22 Dose: 100 mls/hr Levothyroxine Sodium (Synthroid) 50 mcg PO DAILY@0630 [facility] Last Admin: 08/07/16 06:42 Dose: Not Given Oxycodone/Acetaminophen (Percocet 5/325 Mg Tab) 1 tab PO Q4 PRN PRN Reason: Pain, severe (8-10) Stop: 08/09/16 14:19 Pantoprazole Sodium (Protonix Ec Tab) 40 mg PO DAILY [facility] Last Admin: 08/07/16 09:31 Dose: Not Given Tramadol HCl (Ultram) 50 mg PO Q4 PRN PRN Reason: Pain, moderate (4-7) Last Admin: 08/06/16 22:19 Dose: 50 mg - Labs Labs: 08/07/16 07:45 08/07/16 07:45 PT 12.4 SECONDS (9.6-11.2) H 08/06/16 06:50 INR 1.19 (0.92-1.08) H 08/06/16 06:50 APTT 32.0 SECONDS (23.3-32.5) 08/06/16 06:50 Assessment and Plan (1) Atelectasis, right Status: Acute (2) Pneumonia Status: Acute
[2016-08-07] MEDS: Oxycodone/Acetaminophen 5/325 mg Tab PO PRN ×3 (10:08→18:19)
--- NOTE | 2016-08-07 10:16 | CP.PCM.PN ---
Subjective - Date & Time of Evaluation Date of Evaluation: 08/07/16 Time of Evaluation: 09:30 - Subjective Subjective: NO CHEST PAIN, BREATHING BETTER Objective - Vital Signs/Intake and Output Vital Signs (last 24 hours): Temp Pulse Resp BP Pulse Ox 98.8 F 110 H 20 127/76 93 L 08/07/16 08:16 08/07/16 08:16 08/07/16 08:16 08/07/16 08:16 08/07/16 08:16 - Medications Medications: Current Medications Acetylcysteine (Mucomyst 10% 4ml) 2 ml IH RBID [facility] Last Admin: 08/07/16 07:12 Dose: 2 ml Albuterol Sulfate (Albuterol 0.083% Inhal Martha (2.5 Mg/3 Ml) Ud) 2.5 mg INH RBID [facility] Last Admin: 08/07/16 07:12 Dose: 2.5 mg Atorvastatin Calcium (Lipitor) 20 mg PO DAILY [facility] Last Admin: 08/07/16 10:12 Dose: 20 mg Enoxaparin Sodium (Lovenox) 40 mg SC DAILY [facility] PRN Reason: Protocol Stop: 08/09/16 09:01 Guaifenesin (Mucinex La) 600 mg PO Q12 [facility] Last Admin: 08/06/16 22:00 Dose: 600 mg Azithromycin 500 mg/ Sodium (Chloride) 250 mls @ 250 mls/hr IVPB DAILY [facility] Last Admin: 08/07/16 09:38 Dose: 250 mls/hr Ceftriaxone Sodium 1 gm/ (Sodium Chloride) 100 mls @ 100 mls/hr IVPB DAILY [facility] Last Admin: 08/06/16 08:12 Dose: 100 mls/hr Lactated Ringer's (Lactated Ringer's) 1,000 mls @ 50 mls/hr IV .Q20H [facility] Last Admin: 08/06/16 16:18 Dose: 50 mls/hr Sodium Chloride (Sodium Chloride 0.9%) 1,000 mls @ 100 mls/hr IV .Q10H [facility] Last Admin: 08/07/16 06:22 Dose: 100 mls/hr Levothyroxine Sodium (Synthroid) 50 mcg PO DAILY@0630 [facility] Last Admin: 08/07/16 06:42 Dose: Not Given Oxycodone/Acetaminophen (Percocet 5/325 Mg Tab) 1 tab PO Q4 PRN PRN Reason: Pain, severe (8-10) Stop: 08/09/16 14:19 Last Admin: 08/07/16 10:08 Dose: 1 tab Pantoprazole Sodium (Protonix Ec Tab) 40 mg PO DAILY [facility] Last Admin: 08/07/16 10:12 Dose: 40 mg Tramadol HCl (Ultram) 50 mg PO Q4 PRN PRN Reason: Pain, moderate (4-7) Last Admin: 08/06/16 22:19 Dose: 50 mg - Labs Labs: 08/07/16 07:45 08/07/16 07:45 PT 12.4 SECONDS (9.6-11.2) H 08/06/16 06:50 INR 1.19 (0.92-1.08) H 08/06/16 06:50 APTT 32.0 SECONDS (23.3-32.5) 08/06/16 06:50 - Respiratory Exam Respiratory Exam: Rales, Rhonchi - Cardiovascular Exam Cardiovascular Exam: REGULAR RHYTHM, +S1, +S2 - Additional Findings Additional findings: OR NOTES SEEN WITH ORIF LEFT HUMERUS PULMONARY NOTES REVIEWED Assessment and Plan - Assessment and Plan (Free Text) Assessment: FRACTURE OF LEFT HUMERUS WITH ORIF PNEUMONIA HYPERLIPIDEMIA Plan: CONTINUE ANTIBIOTICS, ATORVASTATIN AND LOVENOX
[2016-08-07] MEDS ORDERED: Lidocaine 5% Patch TD SCH (10:30)
--- NOTE | 2016-08-07 13:35 | RAD ---
HISTORY: Atelectasis COMPARISON: No prior. FINDINGS: LUNGS: There is airspace disease in the right lower lobe slightly improved since the prior examination. The left lung is clear. PLEURA: There is a small right pleural effusion. No pneumothorax. No pleural effusion. CARDIOVASCULAR: The heart is normal in size. OSSEOUS STRUCTURES: No significant abnormalities. VISUALIZED UPPER ABDOMEN: Normal. OTHER FINDINGS: None. IMPRESSION: Right lower lobe airspace disease slightly improved since the prior examination could represent atelectasis/pneumonia. Small right pleural effusion.
--- NOTE | 2016-08-07 14:25 | CP.PCM.CON ---
History of Present Illness - History of Present Illness History of Present Illness: psychiatry consult ordered by dr. mcgee reason: depression cc: we haven't really decided about this met with pt her rn, and pt's son. they are still deciding if they would like to talk to the psychiatrist. discussed concerns that pt had been depressed since of her sister. pt and family do not wish for an evaluation currently. pt and family are asking for information about outpatient services in their area pt is denying any suicidal thought and states "i would never do that" unable to further assess as pt 1) does not want the assessment at this time and 2)pt current in pain recommendation: licensed social worker can give pt numbers/referral to outpatient therapy t/c cymbalta to address mood/pain t/c pain management consult have offered to see patient again if pt and family change their mind Past Patient History - Past Medical History & Family History Past Medical History?: Yes - Past Social History Alcohol: None Drugs: Denies - CARDIAC Hx Hypercholesterolemia: Yes Hx Hypertension: Yes - PULMONARY Hx Respiratory Disorders: No - NEUROLOGICAL Hx Neurological Disorder: No - HEENT Hx HEENT Problems: No - RENAL Hx Chronic Kidney Disease: No - ENDOCRINE/METABOLIC Hx Hypothyroidism: Yes - HEMATOLOGICAL/ONCOLOGICAL Hx Blood Disorders: No - INTEGUMENTARY Hx Dermatological Problems: No - MUSCULOSKELETAL/RHEUMATOLOGICAL Hx Musculoskeletal Disorders: Yes Hx Back Pain: Yes Hx Falls: Yes - GASTROINTESTINAL Hx Gastrointestinal Disorders: No - GENITOURINARY/GYNECOLOGICAL Hx Genitourinary Disorders: No - PSYCHIATRIC Hx Psychophysiologic Disorder: No Hx Substance Use: No - SURGICAL HISTORY Hx Surgeries: No - ANESTHESIA Hx Anesthesia: No Hx Anesthesia Reactions: No Hx Malignant Hyperthermia: No Has any member of the family had a problem w/ anesthesia?: No Meds Allergies/Adverse Reactions: Allergies Allergy/AdvReac Type Severity Reaction Status Date / Time No Known Allergies Allergy Verified 07/18/16 09:31 - Medications Medications: Current Medications Acetylcysteine (Mucomyst 10% 4ml) 2 ml IH RBID [facility] Last Admin: 08/07/16 07:12 Dose: 2 ml Albuterol Sulfate (Albuterol 0.083% Inhal Martha (2.5 Mg/3 Ml) Ud) 2.5 mg INH RBID [facility] Last Admin: 08/07/16 07:12 Dose: 2.5 mg Atorvastatin Calcium (Lipitor) 20 mg PO DAILY [facility] Last Admin: 08/07/16 10:12 Dose: 20 mg Cyclobenzaprine HCl (Flexeril) 5 mg PO TID PRN PRN Reason: Muscle spasm Last Admin: 08/07/16 11:09 Dose: 5 mg Docusate Sodium (Colace) 100 mg PO BID [facility] Last Admin: 08/07/16 11:17 Dose: 100 mg Enoxaparin Sodium (Lovenox) 40 mg SC DAILY [facility] PRN Reason: Protocol Stop: 08/09/16 09:01 Guaifenesin (Mucinex La) 600 mg PO Q12 [facility] Last Admin: 08/07/16 10:13 Dose: 600 mg Azithromycin 500 mg/ Sodium (Chloride) 250 mls @ 250 mls/hr IVPB DAILY [facility] Last Admin: 08/07/16 09:38 Dose: 250 mls/hr Ceftriaxone Sodium 1 gm/ (Sodium Chloride) 100 mls @ 100 mls/hr IVPB DAILY [facility] Last Admin: 08/07/16 10:21 Dose: 100 mls/hr Lactated Ringer's (Lactated Ringer's) 1,000 mls @ 50 mls/hr IV .Q20H [facility] Last Admin: 08/06/16 16:18 Dose: 50 mls/hr Sodium Chloride (Sodium Chloride 0.9%) 1,000 mls @ 100 mls/hr IV .Q10H [facility] Last Admin: 08/07/16 06:22 Dose: 100 mls/hr Levothyroxine Sodium (Synthroid) 50 mcg PO DAILY@0630 [facility] Last Admin: 08/07/16 10:18 Dose: 50 mcg Lidocaine (Lidoderm) 1 ea TD DAILY [facility] Last Admin: 08/07/16 11:11 Dose: 1 ea Oxycodone/Acetaminophen (Percocet 5/325 Mg Tab) 1 tab PO Q4 PRN PRN Reason: Pain, severe (8-10) Stop: 08/09/16 14:19 Last Admin: 08/07/16 14:02 Dose: 1 tab Pantoprazole Sodium (Protonix Ec Tab) 40 mg PO DAILY [facility] Last Admin: 08/07/16 10:12 Dose: 40 mg Tramadol HCl (Ultram) 50 mg PO Q4 PRN PRN Reason: Pain, moderate (4-7) Last Admin: 08/06/16 22:19 Dose: 50 mg Results - Vital Signs Recent Vital Signs: Last Vital Signs Temp 98.8 F 08/07/16 08:16 Pulse 110 H 08/07/16 08:16 Resp 20 08/07/16 08:16 BP 127/76 08/07/16 08:16 Pulse Ox 93 L 08/07/16 08:16 - Labs Result Diagrams: 08/07/16 07:45 08/07/16 07:45 Labs: Laboratory Results - last 24 hr 08/07/16 08/07/16 07:45 07:45 WBC 10.3 RBC 3.91 Hgb 10.4 L Hct 30.7 L MCV 78.6 L MCH 26.5 L MCHC 33.7 RDW 16.4 H Plt Count 421 H Sodium 134 Potassium 3.5 L Chloride 101 Carbon Dioxide 26 Anion Gap 11 BUN 13 Creatinine 0.6 L Est GFR ( Amer) > 60 Est GFR (Non-Af Amer) > 60 Random Glucose 95 Calcium 8.6
[2016-08-07] MEDS ORDERED: Lidocaine 5% Patch TD ONE (15:11)
[2016-08-07] MEDS: Sodium Chloride 0.9% 1,000 ML IV SCH (16:52)
--- NOTE | 2016-08-07 18:37 | CT ---
PROCEDURE: CT Lumbar Spine without contrast HISTORY: low back pain COMPARISON: None. TECHNIQUE: Axial computed tomography images were obtained of the lumbar spine without the use of intravenous contrast. Coronal and sagittal reformatted images were created and reviewed. Radiation dose: Total exam DLP = 767.9 mGy-cm. This CT exam was performed using one or more of the following dose reduction techniques: Automated exposure control, adjustment of the mA and/or kV according to patient size, and/or use of iterative reconstruction technique. FINDINGS: VERTEBRAE: There is destructive bony lesion at L5 highly suspicious for malignant neoplasm. The differential diagnosis includes infectious process/ osteomyelitis. There are also small lytic lesions seen at L4. There is lytic lesion seen at the superior endplate of L2. Small foci of lytic lesions seen also at T12 and L1. DISCS/SPINAL CANAL/NEURAL FORAMINA: L1-2: Unremarkable. L2-3: Unremarkable. L3-4: Unremarkable. L4-5: There is moderate size disc herniation seen associated with posterior ligament hypertrophy and resulting in [id number] spinal stenosis. L5-S1: There is mass lesion at the left and posterior aspect of L5 extending to the spinal canal and resulting in severe stenosis of the thecal sac at this level. PARASPINAL SOFT TISSUES: UnremarkableThe L5 soft tissue mass extending to the left paraspinal region and associated with destruction of the left pedicle. . OTHER FINDINGS: None. IMPRESSION: Large destructive mass lesion at L5 vertebral body associated with almost complete destruction of the L5 vertebral body and extending to the spinal canal. Severe narrowing of the spinal canal at L5 level due to mass lesion that also associated with complete destruction of the left pedicle and left transverse process of L5. Findings highly suspicious for malignant neoplasm. Scattered lytic lesions more prominent at L2 and L4 also suspicious for metastasis.
[2016-08-07] MEDS ORDERED: Iohexol 300 100 ML IJ ONE (20:34)
[2016-08-07] MEDS ORDERED: Sodium Chloride 0.9% 50 ML IV ONE (20:35)
--- NOTE | 2016-08-07 21:54 | CT ---
EXAM: CT Lumbar Spine With Intravenous Contrast CLINICAL HISTORY: 55 years old, female; Condition or disease; Bone lesion, lumbosacral; Additional info: L5 mass with destruction of l5 body. TECHNIQUE: Axial computed tomography images of the lumbar spine with intravenous contrast. This CT exam was performed using one or more of the following dose reduction techniques: automated exposure control, adjustment of the mA and/or kV according to patient size, and/or use of iterative reconstruction technique. Coronal and sagittal reformatted images were created and reviewed. CONTRAST: 95 mL of [id number] administered intravenously. COMPARISON: CT - LUMBAR SPINE W/O CONTRAST 08/07/2016 5:44:16 PM FINDINGS: Again noted is the destructive bony lesion at L5, appearance most consistent with malignant neoplasm. There are also small lytic lesions seen in the remainder of the visualized vertebral bodies. Lytic lesion also identified in the right iliac bone. Multilevel degenerative changes. L4-L5, there is moderate size disc herniation seen associated with posterior ligament hypertrophy and resulting in [id number] spinal stenosis. There is mass lesion at the left and posterior aspect of L5 extending to the spinal canal and resulting in severe stenosis of the thecal sac at this level. L5 soft tissue mass extending to the left paraspinal region and associated with destruction of the left pedicle. Partial visualization of a right adrenal nodule, incompletely visualized or evaluated. Atherosclerosis. IMPRESSION: Large destructive mass lesion at L5 vertebral body associated with almost complete destruction of the L5 vertebral body and extending to the spinal canal. Severe narrowing of the spinal canal at L5 level due to mass lesion that also associated with complete destruction of the left pedicle and left transverse process of L5. Findings most consistent with malignant neoplasm. Additional lytic lesions visualized in osseous structures as above. Partial visualization of a right adrenal nodule, incompletely visualized or evaluated.
[2016-08-08] MEDS: Oxycodone/Acetaminophen 5/325 mg Tab PO PRN ×2 (00:26→05:08)
[2016-08-08] MEDS: Lactated Ringer's 1,000 ML IV SCH (04:33)
[2016-08-08] MEDS: Sodium Chloride 0.9% 1,000 ML IV SCH ×3 (05:12→23:07)
[2016-08-08] MEDS: Levothyroxine 50 MCG TAB PO SCH (06:44)
--- NOTE | 2016-08-08 06:45 | RAD ---
HISTORY: Evaluation of post surgical site COMPARISON: No prior FINDINGS: BONES: Status post fixation of a humerus fracture with surgical dorota present. JOINTS: Normal. No osteoarthritis. SOFT TISSUE: Normal. OTHER FINDINGS: None . IMPRESSION: Status post surgery for fracture in good anatomic alignment.
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
[2016-08-08] MEDS: Acetylcysteine 10% 4 ML IH SCH ×2 (08:32→19:08)
[2016-08-08] MEDS: Albuterol 0.083% Inhal Sol (2.5 mg/3 mL) UD INH SCH ×2 (08:32→19:08)
[2016-08-08] MEDS: Pantoprazole 40 mg EC Tab PO SCH (09:11)
[2016-08-08] MEDS: guaiFENesin 600 mg ER Tab PO SCH ×2 (09:11→21:43)
[2016-08-08] MEDS: Lidocaine 5% Patch TD SCH (09:12)
[2016-08-08] MEDS: Azithromycin 500 MG in Sodium Chloride 0.9% 250 ML IVPB SCH (09:13)
[2016-08-08] MEDS: Enoxaparin 40 mg Syringe SC SCH (09:13)
--- NOTE | 2016-08-08 12:50 | CP.PCM.PN ---
Subjective - Date & Time of Evaluation Date of Evaluation: 08/08/16 Time of Evaluation: 12:46 - Subjective Subjective: Findings of CT LSS reviewed and add to the need for bronchoscopy. Planned for Wednesday AM. Bronchogenic primary is a likely source. LFT's are normal, but US liver is requested. Visualization of the liver on the chest CT is sub-optimal, but there may be a hypodense lesion in the right lobe. Discussed with the family all of these details. Objective - Vital Signs/Intake and Output Vital Signs (last 24 hours): Temp Pulse Resp BP Pulse Ox 98.8 F 110 H 18 133/80 94 L 08/08/16 07:29 08/08/16 07:29 08/08/16 07:29 08/08/16 07:08/08/16 07:29 - Medications Medications: Current Medications Acetylcysteine (Mucomyst 10% 4ml) 2 ml IH RBID [facility] Last Admin: 08/08/16 08:32 Dose: 2 ml Albuterol Sulfate (Albuterol 0.083% Inhal Martha (2.5 Mg/3 Ml) Ud) 2.5 mg INH RBID [facility] Last Admin: 08/08/16 08:32 Dose: 2.5 mg Atorvastatin Calcium (Lipitor) 20 mg PO DAILY [facility] Last Admin: 08/08/16 09:13 Dose: 20 mg Cyclobenzaprine HCl (Flexeril) 5 mg PO TID [facility] Last Admin: 08/08/16 09:12 Dose: 5 mg Docusate Sodium (Colace) 100 mg PO BID [facility] Last Admin: 08/08/16 09:10 Dose: 100 mg Enoxaparin Sodium (Lovenox) 40 mg SC DAILY [facility] PRN Reason: Protocol Stop: 08/09/16 09:01 Last Admin: 08/08/16 09:13 Dose: 40 mg Gabapentin (Neurontin) 100 mg PO BID [facility] Last Admin: 08/08/16 09:11 Dose: 100 mg Guaifenesin (Mucinex La) 600 mg PO Q12 [facility] Last Admin: 08/08/16 09:11 Dose: 600 mg Azithromycin 500 mg/ Sodium (Chloride) 250 mls @ 250 mls/hr IVPB DAILY [facility] Last Admin: 08/08/16 09:13 Dose: 250 mls/hr Ceftriaxone Sodium 1 gm/ (Sodium Chloride) 100 mls @ 100 mls/hr IVPB DAILY [facility] Last Admin: 08/08/16 09:10 Dose: 100 mls/hr Lactated Ringer's (Lactated Ringer's) 1,000 mls @ 50 mls/hr IV .Q20H [facility] Last Admin: 08/08/16 04:33 Dose: Not Given Sodium Chloride (Sodium Chloride 0.9%) 1,000 mls @ 70 mls/hr IV .[id number] [facility] Last Admin: 08/08/16 05:12 Dose: 70 mls/hr Ketorolac Tromethamine (Toradol) 30 mg IVP Q6 PRN PRN Reason: Pain, severe (8-10) Levothyroxine Sodium (Synthroid) 50 mcg PO DAILY@0630 [facility] Last Admin: 08/08/16 06:44 Dose: 50 mcg Lidocaine (Lidoderm) 2 ea TD DAILY [facility] Last Admin: 08/08/16 09:12 Dose: 2 ea Oxycodone/Acetaminophen (Percocet 5/325 Mg Tab) 1 tab PO Q4 PRN PRN Reason: Pain, severe (8-10) Stop: 08/09/16 14:19 Last Admin: 08/08/16 05:08 Dose: 1 tab Pantoprazole Sodium (Protonix Ec Tab) 40 mg PO DAILY [facility] Last Admin: 08/08/16 09:11 Dose: 40 mg Tramadol HCl (Ultram) 50 mg PO Q4 PRN PRN Reason: Pain, moderate (4-7) Last Admin: 08/06/16 22:19 Dose: 50 mg - Labs Labs: 08/07/16 07:45 08/07/16 07:45 PT 12.4 SECONDS (9.6-11.2) H 08/06/16 06:50 INR 1.19 (0.92-1.08) H 08/06/16 06:50 APTT 32.0 SECONDS (23.3-32.5) 08/06/16 06:50 Assessment and Plan (1) Atelectasis, right Status: Acute (2) Pneumonia Status: Acute
--- NOTE | 2016-08-08 14:06 | CP.PCM.PN ---
Subjective - Date & Time of Evaluation Date of Evaluation: 08/08/16 Time of Evaluation: 14:00 - Subjective Subjective: S- pt complaining opf low back discomfort/minimal discomfort L upper ext Objective - Vital Signs/Intake and Output Vital Signs (last 24 hours): Temp Pulse Resp BP Pulse Ox 98.8 F 110 H 18 133/80 94 L 08/08/16 07:29 08/08/16 07:29 08/08/16 07:29 08/08/16 07:29 08/08/16 07:29 - Medications Medications: Current Medications Acetylcysteine (Mucomyst 10% 4ml) 2 ml IH RBID [facility] Last Admin: 08/08/16 08:32 Dose: 2 ml Albuterol Sulfate (Albuterol 0.083% Inhal Martha (2.5 Mg/3 Ml) Ud) 2.5 mg INH RBID [facility] Last Admin: 08/08/16 08:32 Dose: 2.5 mg Atorvastatin Calcium (Lipitor) 20 mg PO DAILY [facility] Last Admin: 08/08/16 09:13 Dose: 20 mg Cyclobenzaprine HCl (Flexeril) 5 mg PO TID [facility] Last Admin: 08/08/16 09:12 Dose: 5 mg Docusate Sodium (Colace) 100 mg PO BID [facility] Last Admin: 08/08/16 09:10 Dose: 100 mg Enoxaparin Sodium (Lovenox) 40 mg SC DAILY [facility] PRN Reason: Protocol Stop: 08/09/16 09:01 Last Admin: 08/08/16 09:13 Dose: 40 mg Gabapentin (Neurontin) 100 mg PO BID [facility] Last Admin: 08/08/16 09:11 Dose: 100 mg Guaifenesin (Mucinex La) 600 mg PO Q12 [facility] Last Admin: 08/08/16 09:11 Dose: 600 mg Azithromycin 500 mg/ Sodium (Chloride) 250 mls @ 250 mls/hr IVPB DAILY [facility] Last Admin: 08/08/16 09:13 Dose: 250 mls/hr Ceftriaxone Sodium 1 gm/ (Sodium Chloride) 100 mls @ 100 mls/hr IVPB DAILY [facility] Last Admin: 08/08/16 09:10 Dose: 100 mls/hr Lactated Ringer's (Lactated Ringer's) 1,000 mls @ 50 mls/hr IV .Q20H [facility] Last Admin: 08/08/16 04:33 Dose: Not Given Sodium Chloride (Sodium Chloride 0.9%) 1,000 mls @ 70 mls/hr IV .[id number] [facility] Last Admin: 08/08/16 05:12 Dose: 70 mls/hr Ketorolac Tromethamine (Toradol) 30 mg IVP Q6 PRN PRN Reason: Pain, severe (8-10) Levothyroxine Sodium (Synthroid) 50 mcg PO DAILY@0630 [facility] Last Admin: 08/08/16 06:44 Dose: 50 mcg Lidocaine (Lidoderm) 2 ea TD DAILY [facility] Last Admin: 08/08/16 09:12 Dose: 2 ea Oxycodone/Acetaminophen (Percocet 5/325 Mg Tab) 1 tab PO Q4 PRN PRN Reason: Pain, severe (8-10) Stop: 08/09/16 14:19 Last Admin: 08/08/16 05:08 Dose: 1 tab Pantoprazole Sodium (Protonix Ec Tab) 40 mg PO DAILY [facility] Last Admin: 08/08/16 09:11 Dose: 40 mg Tramadol HCl (Ultram) 50 mg PO Q4 PRN PRN Reason: Pain, moderate (4-7) Last Admin: 08/06/16 22:19 Dose: 50 mg - Labs Labs: 08/07/16 07:45 08/07/16 07:45 PT 12.4 SECONDS (9.6-11.2) H 08/06/16 06:50 INR 1.19 (0.92-1.08) H 08/06/16 06:50 APTT 32.0 SECONDS (23.3-32.5) 08/06/16 06:50 - Additional Findings Additional findings: Obj sysyemic- as per Dr Gallardo and hospitalist Musculoskekltal stance/gait0 defrred pt with immobilizer L upper ext N/V intact L upper ext pt with sever pain in low back currently relatively comfortable at bedrest Assessment and Plan - Assessment and Plan (Free Text) Assessment: a- s.p ORIF displaced l humeral shaft fx CT reveals soft tissue mass L/S spine pulmonaryt nodules as per DR Gallardo P- neurosurg consult for lower lumbar mass mgmt of pulmonary lesion per DR Gallardo orthopedically stable-continue immobilization for L humeral fx
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
[2016-08-09] MEDS: Levothyroxine 50 MCG TAB PO SCH (06:33)
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
[2016-08-09] MEDS: Albuterol 0.083% Inhal Sol (2.5 mg/3 mL) UD INH SCH ×2 (07:58→19:55)
[2016-08-09] MEDS: Acetylcysteine 10% 4 ML IH SCH ×2 (07:59→19:54)
[2016-08-09 08:23] LABS: BASO # 0.1 K/uL (0.0-0.2); BASO % 0.6 % (0.0-2.0); EOS # 0.1 K/uL (0.0-0.7); EOS % 1.2 % (0.0-4.0); HEMATOCRIT 26.5 % (34.0-47.0); LYMPH # 1.2 K/uL (1.0-4.3); LYMPH % 10.5 % (20.0-40.0); MEAN CELL VOLUME 78.1 fl (81.0-99.0); MEAN CORPUSCULAR HEMOGLOBIN 26.5 pg (27.0-31.0); MEAN PLATELET VOLUME 7.2 fl (7.2-11.7); MONO # 0.8 K/uL (0.0-0.8); MONO % 6.6 % (0.0-10.0); NEUT # 9.2 K/uL (1.8-7.0); NEUT % 81.1 % (50.0-75.0); RED CELL DISTRIBUTION WIDTH 16.5 % (11.5-14.5); WHITE BLOOD COUNT 11.3 K/uL (4.8-10.8)
[2016-08-09 08:28] LABS: BLOOD UREA NITROGEN 9 mg/dl (7-17); CALCIUM 8.6 mg/dL (8.4-10.2); CARBON DIOXIDE 27 mmol/L (22-30); CHLORIDE 106 mmol/L (98-107); GFR AFRICAN-AMERICAN > 60; GLUCOSE,RANDOM 89 mg/dL (65-105); POTASSIUM 3.1 MMOL/L (3.6-5.0); SODIUM 138 mmol/l (132-148)
[2016-08-09] MEDS: Lidocaine 5% Patch TD SCH (08:32)
[2016-08-09] MEDS: Enoxaparin 40 mg Syringe SC SCH (08:34)
[2016-08-09] MEDS: Azithromycin 500 MG in Sodium Chloride 0.9% 250 ML IVPB SCH (08:40)
[2016-08-09] MEDS ORDERED: Potassium Chloride 20 mEq ER Tab PO ONE (11:06)
--- NOTE | 2016-08-09 12:05 | CP.PCM.PN ---
Subjective - Date & Time of Evaluation Date of Evaluation: 08/09/16 Time of Evaluation: 11:20 - Subjective Subjective: NO CHEST PAIN BREATHING BETTER BACK PAIN Objective - Vital Signs/Intake and Output Vital Signs (last 24 hours): Temp Pulse Resp BP Pulse Ox 99.1 F 104 H 20 119/77 95 08/09/16 07:28 08/09/16 07:28 08/09/16 07:28 08/09/16 07:28 08/09/16 07:28 - Medications Medications: Current Medications Acetylcysteine (Mucomyst 10% 4ml) 2 ml IH RBID [facility] Last Admin: 08/09/16 07:59 Dose: 2 ml Albuterol Sulfate (Albuterol 0.083% Inhal Martha (2.5 Mg/3 Ml) Ud) 2.5 mg INH RBID [facility] Last Admin: 08/09/16 07:58 Dose: 2.5 mg Atorvastatin Calcium (Lipitor) 20 mg PO DAILY [facility] Last Admin: 08/08/16 09:13 Dose: 20 mg Cyclobenzaprine HCl (Flexeril) 5 mg PO TID [facility] Last Admin: 08/08/16 16:29 Dose: 5 mg Docusate Sodium (Colace) 100 mg PO BID [facility] Last Admin: 08/08/16 17:36 Dose: 100 mg Ferrous Sulfate (Feosol) 325 mg PO BID [facility] Gabapentin (Neurontin) 100 mg PO BID [facility] Last Admin: 08/08/16 16:29 Dose: 100 mg Guaifenesin (Mucinex La) 600 mg PO Q12 [facility] Last Admin: 08/08/16 21:43 Dose: 600 mg Azithromycin 500 mg/ Sodium (Chloride) 250 mls @ 250 mls/hr IVPB DAILY [facility] Last Admin: 08/09/16 08:40 Dose: 250 mls/hr Ceftriaxone Sodium 1 gm/ (Sodium Chloride) 100 mls @ 100 mls/hr IVPB DAILY [facility] Last Admin: 08/09/16 08:31 Dose: 100 mls/hr Sodium Chloride (Sodium Chloride 0.9%) 1,000 mls @ 70 mls/hr IV .[id number] [facility] Last Admin: 08/08/16 23:07 Dose: 70 mls/hr Ketorolac Tromethamine (Toradol) 30 mg IVP Q6 PRN PRN Reason: Pain, severe (8-10) Last Admin: 08/09/16 08:43 Dose: 30 mg Levothyroxine Sodium (Synthroid) 88 mcg PO DAILY@0630 [facility] Lidocaine (Lidoderm) 2 ea TD DAILY [facility] Last Admin: 08/09/16 08:32 Dose: 2 ea Oxycodone/Acetaminophen (Percocet 5/325 Mg Tab) 1 tab PO Q4 PRN PRN Reason: Pain, severe (8-10) Stop: 08/09/16 14:19 Last Admin: 08/08/16 05:08 Dose: 1 tab Pantoprazole Sodium (Protonix Ec Tab) 40 mg PO DAILY [facility] Last Admin: 08/08/16 09:11 Dose: 40 mg Tramadol HCl (Ultram) 50 mg PO Q4 PRN PRN Reason: Pain, moderate (4-7) Last Admin: 08/06/16 22:19 Dose: 50 mg - Labs Labs: 08/09/16 06:30 08/09/16 06:00 PT 12.4 SECONDS (9.6-11.2) H 08/06/16 06:50 INR 1.19 (0.92-1.08) H 08/06/16 06:50 APTT 32.0 SECONDS (23.3-32.5) 08/06/16 06:50 - Respiratory Exam Respiratory Exam: Rales, Rhonchi - Cardiovascular Exam Cardiovascular Exam: Tachycardia, REGULAR RHYTHM, +S1, +S2 - Additional Findings Additional findings: PULMONARY NOTES REVIEWED ONCOLOGY NOTES REVIEWED LUMBAR SPINE CT RESULTS NOTED Assessment and Plan - Assessment and Plan (Free Text) Assessment: S/P ORIF OF LEFT HUMERUS FRACTURE HYPERLIPIDEMIA PNEUMONIA L5 DESTRUCTION. POSSIBLE LYTIC LESION. Plan: CONTINUE ANTIBIOTICS AND ATORVASTATIN ABDOMINAL US FOR BRONCHOSCOPY NEUROSURGERY EVALUATION
[2016-08-09] MEDS: guaiFENesin 600 mg ER Tab PO SCH ×2 (12:25→21:30)
[2016-08-09] MEDS: Pantoprazole 40 mg EC Tab PO SCH (12:29)
[2016-08-09] MEDS: Oxycodone/Acetaminophen 5/325 mg Tab PO PRN (12:36)
[2016-08-09] MEDS ORDERED: Levothyroxine 88 MCG TAB PO STA (12:58)
[2016-08-09] MEDS ORDERED: Oxycodone/Acetaminophen 5/325 mg Tab PO PRN (14:58)
--- NOTE | 2016-08-09 15:29 | US ---
HISTORY: metastatic ca COMPARISON: None available TECHNIQUE: Sonographic evaluation of the right upper quadrant of the abdomen. FINDINGS: Examination markedly limited due to patient condition. LIVER: Measures 13.5 cm in length. 2.8 x 1.8 x 3.2 cm rounded heterogeneous hypoechoic nodule within the right hepatic lobe ; this lesion does not demonstrate evidence of vascularity. Main portal vein appears patent with normal directional flow. No intrahepatic bile duct dilatation. Small ascites. GALLBLADDER: No gallstones. No gallbladder wall thickening or pericholecystic edema. Negative sonographic Rodrigues's sign as assessed by the inspector multifocal lens. COMMON BILE DUCT: Measures 2 mm. PANCREAS: Not well-visualized. RIGHT KIDNEY: Measures 9.9 x 4.8 x 3.5 cm. Too small to characterize 7 x 4 x 7 mm anechoic rounded right lower pole lesion, likely cyst. No hydronephrosis or obstructing calculus identified. AORTA: Limited visualization appears grossly unremarkable. IVC: Limited visualization appears grossly unremarkable. OTHER FINDINGS: None . IMPRESSION: Limited study due to patient condition. Provided history of metastatic carcinoma. No prior abdominal imaging available for comparison. CT of the abdomen and pelvis with oral and IV contrast recommended for further evaluation. 2.8 x 1.8 x 3.2 cm rounded indeterminate heterogeneous hypoechoic nodule within the right hepatic lobe ; this lesion does not demonstrate evidence of vascularity. Partially imaged ascites. Too small to characterize right lower pole renal anechoic lesion, likely cyst.
--- NOTE | 2016-08-09 21:15 | CP.PCM.PN ---
Subjective - Date & Time of Evaluation Date of Evaluation: 08/09/16 Time of Evaluation: 18:05 - Subjective Subjective: Has lower back pain when moves legs Objective - Vital Signs/Intake and Output Vital Signs (last 24 hours): Temp Pulse Resp BP Pulse Ox 98.5 F 90 20 115/69 96 08/09/16 17:23 08/09/16 17:23 08/09/16 17:23 08/09/16 17:23 08/09/16 17:23 - Medications Medications: Current Medications Acetylcysteine (Mucomyst 10% 4ml) 2 ml IH RBID [facility] Last Admin: 08/09/16 19:54 Dose: 2 ml Albuterol Sulfate (Albuterol 0.083% Inhal Martha (2.5 Mg/3 Ml) Ud) 2.5 mg INH RBID [facility] Last Admin: 08/09/16 19:55 Dose: 2.5 mg Atorvastatin Calcium (Lipitor) 20 mg PO DAILY [facility] Last Admin: 08/09/16 12:25 Dose: 20 mg Cyclobenzaprine HCl (Flexeril) 5 mg PO TID [facility] Last Admin: 08/09/16 16:21 Dose: 5 mg Docusate Sodium (Colace) 100 mg PO BID [facility] Last Admin: 08/09/16 16:21 Dose: 100 mg Ferrous Sulfate (Feosol) 325 mg PO BID [facility] Last Admin: 08/09/16 16:21 Dose: 325 mg Gabapentin (Neurontin) 100 mg PO BID [facility] Last Admin: 08/09/16 16:22 Dose: 100 mg Guaifenesin (Mucinex La) 600 mg PO Q12 [facility] Last Admin: 08/09/16 12:25 Dose: 600 mg Azithromycin 500 mg/ Sodium (Chloride) 250 mls @ 250 mls/hr IVPB DAILY [facility] Last Admin: 08/09/16 08:40 Dose: 250 mls/hr Ceftriaxone Sodium 1 gm/ (Sodium Chloride) 100 mls @ 100 mls/hr IVPB DAILY [facility] Last Admin: 08/09/16 08:31 Dose: 100 mls/hr Sodium Chloride (Sodium Chloride 0.9%) 1,000 mls @ 70 mls/hr IV .[id number] [facility] Last Admin: 08/08/16 23:07 Dose: 70 mls/hr Ketorolac Tromethamine (Toradol) 30 mg IVP Q6 PRN PRN Reason: Pain, severe (8-10) Last Admin: 08/09/16 16:25 Dose: 30 mg Levothyroxine Sodium (Synthroid) 88 mcg PO DAILY@0630 [facility] Lidocaine (Lidoderm) 2 ea TD DAILY [facility] Last Admin: 08/09/16 08:32 Dose: 2 ea Oxycodone/Acetaminophen (Percocet 5/325 Mg Tab) 1 tab PO Q6 PRN PRN Reason: Pain, moderate (4-7) Stop: 08/12/16 14:59 Pantoprazole Sodium (Protonix Ec Tab) 40 mg PO DAILY [facility] Last Admin: 08/09/16 12:29 Dose: 40 mg Tramadol HCl (Ultram) 50 mg PO Q4 PRN PRN Reason: Pain, moderate (4-7) Last Admin: 08/06/16 22:19 Dose: 50 mg - Labs Labs: 08/09/16 06:30 08/09/16 06:00 PT 12.4 SECONDS (9.6-11.2) H 08/06/16 06:50 INR 1.19 (0.92-1.08) H 08/06/16 06:50 APTT 32.0 SECONDS (23.3-32.5) 08/06/16 06:50 - Head Exam Head Exam: ATRAUMATIC - Eye Exam Eye Exam: Normal appearance - ENT Exam ENT Exam: Mucous Membranes Dry - Respiratory Exam Respiratory Exam: NORMAL BREATHING PATTERN - Cardiovascular Exam Cardiovascular Exam: +S1, +S2 - GI/Abdominal Exam GI & Abdominal Exam: Normal Bowel Sounds - Extremities Exam Extremities Exam: Normal Inspection Assessment and Plan (1) Pathologic fracture Assessment & Plan: L5 mass with associated pathologic fracture; neurosurgical evaluation lytic bone lesions likely metastatic disease; ?lung primary for bronchoscopy in AM Status: Acute (2) Anemia Assessment & Plan: elevated ferritin consistent with anemia of chronic disease Status: Acute
[2016-08-10] MEDS: Sodium Chloride 0.9% 1,000 ML IV SCH ×2 (01:53→12:20)
[2016-08-10] MEDS: Levothyroxine 88 MCG TAB PO SCH (06:57)
[2016-08-10 07:22] LABS: MEAN CELL VOLUME 78.3 fl (81.0-99.0); MEAN CORPUSCULAR HEMOGLOBIN 26.1 pg (27.0-31.0); MEAN CORPUSCULAR HGB CONC 33.3 g/dL (33.0-37.0); RED CELL DISTRIBUTION WIDTH 16.5 % (11.5-14.5); WHITE BLOOD COUNT 12.6 K/uL (4.8-10.8)
[2016-08-10] MEDS: Acetylcysteine 10% 4 ML IH SCH (07:39)
[2016-08-10] MEDS: Albuterol 0.083% Inhal Sol (2.5 mg/3 mL) UD INH SCH ×2 (07:40→19:36)
[2016-08-10 07:52] LABS: BLOOD UREA NITROGEN 9 mg/dl (7-17); CALCIUM 8.7 mg/dL (8.4-10.2); CARBON DIOXIDE 26 mmol/L (22-30); CHLORIDE 104 mmol/L (98-107); GFR AFRICAN-AMERICAN > 60; GLUCOSE,RANDOM 95 mg/dL (65-105); POTASSIUM 3.5 MMOL/L (3.6-5.0); SODIUM 137 mmol/l (132-148)
--- NOTE | 2016-08-10 08:09 | CP.PCM.PN ---
Subjective - Date & Time of Evaluation Date of Evaluation: 08/10/16 Time of Evaluation: 08:08 - Subjective Subjective: Patient remains NPO. Consent signed and placed in her chart. Bronchoscopy scheduled for 9:45 this morning. Objective - Vital Signs/Intake and Output Vital Signs (last 24 hours): Temp Pulse Resp BP Pulse Ox 98.7 F 96 H 18 138/81 95 08/10/16 07:34 08/10/16 07:34 08/10/16 07:34 08/10/16 07:34 08/10/16 07:34 - Medications Medications: Current Medications Acetylcysteine (Mucomyst 10% 4ml) 2 ml IH RBID [facility] Last Admin: 08/10/16 07:39 Dose: 2 ml Albuterol Sulfate (Albuterol 0.083% Inhal Martha (2.5 Mg/3 Ml) Ud) 2.5 mg INH RBID [facility] Last Admin: 08/10/16 07:40 Dose: 2.5 mg Atorvastatin Calcium (Lipitor) 20 mg PO DAILY [facility] Last Admin: 08/09/16 12:25 Dose: 20 mg Cyclobenzaprine HCl (Flexeril) 5 mg PO TID [facility] Last Admin: 08/09/16 16:21 Dose: 5 mg Docusate Sodium (Colace) 100 mg PO BID [facility] Last Admin: 08/09/16 16:21 Dose: 100 mg Ferrous Sulfate (Feosol) 325 mg PO BID [facility] Last Admin: 08/09/16 16:21 Dose: 325 mg Gabapentin (Neurontin) 100 mg PO BID [facility] Last Admin: 08/09/16 16:22 Dose: 100 mg Guaifenesin (Mucinex La) 600 mg PO Q12 [facility] Last Admin: 08/09/16 21:30 Dose: 600 mg Azithromycin 500 mg/ Sodium (Chloride) 250 mls @ 250 mls/hr IVPB DAILY [facility] Last Admin: 08/09/16 08:40 Dose: 250 mls/hr Ceftriaxone Sodium 1 gm/ (Sodium Chloride) 100 mls @ 100 mls/hr IVPB DAILY [facility] Last Admin: 08/09/16 08:31 Dose: 100 mls/hr Sodium Chloride (Sodium Chloride 0.9%) 1,000 mls @ 70 mls/hr IV .[id number] [facility] Last Admin: 08/10/16 01:53 Dose: Not Given Ketorolac Tromethamine (Toradol) 30 mg IVP Q6 PRN PRN Reason: Pain, severe (8-10) Last Admin: 08/10/16 05:52 Dose: 30 mg Levothyroxine Sodium (Synthroid) 88 mcg PO DAILY@0630 [facility] Last Admin: 08/10/16 06:57 Dose: Not Given Lidocaine (Lidoderm) 2 ea TD DAILY [facility] Last Admin: 08/09/16 08:32 Dose: 2 ea Oxycodone/Acetaminophen (Percocet 5/325 Mg Tab) 1 tab PO Q6 PRN PRN Reason: Pain, moderate (4-7) Stop: 08/12/16 14:59 Pantoprazole Sodium (Protonix Ec Tab) 40 mg PO DAILY [facility] Last Admin: 08/09/16 12:29 Dose: 40 mg Tramadol HCl (Ultram) 50 mg PO Q4 PRN PRN Reason: Pain, moderate (4-7) Last Admin: 08/06/16 22:19 Dose: 50 mg - Labs Labs: 08/10/16 06:40 08/10/16 06:40 PT 12.4 SECONDS (9.6-11.2) H 08/06/16 06:50 INR 1.19 (0.92-1.08) H 08/06/16 06:50 APTT 32.0 SECONDS (23.3-32.5) 08/06/16 06:50 Assessment and Plan (1) Atelectasis, right Status: Acute (2) Pneumonia Status: Acute
[2016-08-10 08:14] LABS: THYROID STIMULATING HORMONE 5.92 mIU/ML (0.46-4.68)
[2016-08-10] MEDS: Azithromycin 500 MG in Sodium Chloride 0.9% 250 ML IVPB SCH ×2 (08:33→12:20)
[2016-08-10] MEDS ORDERED: Potassium CL 10 MEQ/50 ML 50 ML IVPB ONE (08:45)
[2016-08-10] MEDS ORDERED: Potassium Chloride 20 mEq/15 ml LIQ UD PO ONE (08:45)
[2016-08-10] MEDS ORDERED: Sodium Chloride 0.9% 30 ML IV ONE (08:50)
[2016-08-10] MEDS ORDERED: EPINEPHrine 1 mg/ml (1:1000) Inj ONE ×2 (08:50→09:32)
[2016-08-10] MEDS ORDERED: Lidocaine 2% Jelly (5 ml) TOP ONE ×2 (08:51→10:00)
[2016-08-10] MEDS ORDERED: Lidocaine 1% Inj (20ml) ONE (08:51)
--- NOTE | 2016-08-10 08:57 | CP.PCM.PN ---
Subjective - Date & Time of Evaluation Date of Evaluation: 08/10/16 Time of Evaluation: 08:30 - Subjective Subjective: NO CHEST PAIN OR SOB Objective - Vital Signs/Intake and Output Vital Signs (last 24 hours): Temp Pulse Resp BP Pulse Ox 98.7 F 96 H 18 138/81 95 08/10/16 07:34 08/10/16 07:34 08/10/16 07:34 08/10/16 07:34 08/10/16 07:34 - Medications Medications: Current Medications Acetylcysteine (Mucomyst 10% 4ml) 2 ml IH RBID [facility] Last Admin: 08/10/16 07:39 Dose: 2 ml Albuterol Sulfate (Albuterol 0.083% Inhal Martha (2.5 Mg/3 Ml) Ud) 2.5 mg INH RBID [facility] Last Admin: 08/10/16 07:40 Dose: 2.5 mg Atorvastatin Calcium (Lipitor) 20 mg PO DAILY [facility] Last Admin: 08/09/16 12:25 Dose: 20 mg Cyclobenzaprine HCl (Flexeril) 5 mg PO TID [facility] Last Admin: 08/09/16 16:21 Dose: 5 mg Docusate Sodium (Colace) 100 mg PO BID [facility] Last Admin: 08/09/16 16:21 Dose: 100 mg Ferrous Sulfate (Feosol) 325 mg PO BID [facility] Last Admin: 08/09/16 16:21 Dose: 325 mg Gabapentin (Neurontin) 100 mg PO BID [facility] Last Admin: 08/09/16 16:22 Dose: 100 mg Guaifenesin (Mucinex La) 600 mg PO Q12 [facility] Last Admin: 08/09/16 21:30 Dose: 600 mg Azithromycin 500 mg/ Sodium (Chloride) 250 mls @ 250 mls/hr IVPB DAILY [facility] Last Admin: 08/10/16 08:33 Dose: 250 mls/hr Ceftriaxone Sodium 1 gm/ (Sodium Chloride) 100 mls @ 100 mls/hr IVPB DAILY [facility] Last Admin: 08/09/16 08:31 Dose: 100 mls/hr Sodium Chloride (Sodium Chloride 0.9%) 1,000 mls @ 70 mls/hr IV .[id number] [facility] Last Admin: 08/10/16 01:53 Dose: Not Given Potassium Chloride (Potassium Cl 10meq/50ml Sterile Water) 50 mls @ 50 mls/hr IVPB ONCE ONE Stop: 08/10/16 09:44 Ketorolac Tromethamine (Toradol) 30 mg IVP Q6 PRN PRN Reason: Pain, severe (8-10) Last Admin: 08/10/16 05:52 Dose: 30 mg Levothyroxine Sodium (Synthroid) 88 mcg PO DAILY@0630 [facility] Last Admin: 08/10/16 06:57 Dose: Not Given Lidocaine (Lidoderm) 2 ea TD DAILY [facility] Last Admin: 08/09/16 08:32 Dose: 2 ea Oxycodone/Acetaminophen (Percocet 5/325 Mg Tab) 1 tab PO Q6 PRN PRN Reason: Pain, moderate (4-7) Stop: 08/12/16 14:59 Pantoprazole Sodium (Protonix Ec Tab) 40 mg PO DAILY [facility] Last Admin: 08/09/16 12:29 Dose: 40 mg Tramadol HCl (Ultram) 50 mg PO Q4 PRN PRN Reason: Pain, moderate (4-7) Last Admin: 08/06/16 22:19 Dose: 50 mg - Labs Labs: 08/10/16 06:40 08/10/16 06:40 PT 12.4 SECONDS (9.6-11.2) H 08/06/16 06:50 INR 1.19 (0.92-1.08) H 08/06/16 06:50 APTT 32.0 SECONDS (23.3-32.5) 08/06/16 06:50 - Respiratory Exam Respiratory Exam: Decreased Breath Sounds, Rales - Cardiovascular Exam Cardiovascular Exam: REGULAR RHYTHM, +S1, +S2 - Additional Findings Additional findings: PULNONARY NOTE SEEN PATIENT SEEN BY NEUROSURGERY Assessment and Plan - Assessment and Plan (Free Text) Assessment: HYPERLIPIDEMIA PNEUMONIA L5 LESION HYPOTHYROIDISM Plan: FOR BRONCHOSCOPY TODAY PER ONCOLOGY AND NEUROSURGERY CONTINUE ANTIBIOTICS, ATORVASTATIN AND LEVOTHYROXINE
[2016-08-10] MEDS ORDERED: Etomidate 20 mg/10ml Inj IV ONE (09:00)
[2016-08-10] MEDS ORDERED: Succinylcholine 200 mg/10 ml Inj IV ONE (09:01)
[2016-08-10] MEDS ORDERED: Midazolam 2 MG/2 ML VIAL ONE ×2 (09:01→09:02)
[2016-08-10] MEDS: Lidocaine 5% Patch TD SCH (09:22)
[2016-08-10] MEDS: guaiFENesin 600 mg ER Tab PO SCH ×2 (09:23→20:31)
[2016-08-10] MEDS: Pantoprazole 40 mg EC Tab PO SCH (09:24)
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
[2016-08-10] MEDS ORDERED: Propofol 10 mg/ml Inj (20 ML) ONE (09:32)
[2016-08-10] MEDS ORDERED: Labetalol 5mg/ml (4ml) ONE (09:33)
[2016-08-10] MEDS ORDERED: Sodium Chloride 0.9% Inj (10mL) IV ONE (10:00)
[2016-08-10] MEDS ORDERED: Lidocaine 1% Inj (20ml) IV ONE (10:00)
[2016-08-10] MEDS ORDERED: Lactated Ringer's 1,000 ML IV ONE (10:10)
--- NOTE | 2016-08-10 17:11 | RAD ---
HISTORY: post-bronchoscopy COMPARISON: Comparison is made to the previous study dated 08/07/2016 FINDINGS: LUNGS: No significant interval change in the lungs noted since the previous exam. PLEURA: Right pleural effusion is again seen. This suspicious for small new left pleural effusion. CARDIOVASCULAR: Normal. OSSEOUS STRUCTURES: No significant abnormalities. VISUALIZED UPPER ABDOMEN: Normal. OTHER FINDINGS: None. IMPRESSION: Possible small new left pleural effusion. Otherwise no significant interval change.
[2016-08-11] MEDS: Sodium Chloride 0.9% 1,000 ML IV SCH ×2 (03:30→05:26)
[2016-08-11] MEDS: Levothyroxine 88 MCG TAB PO SCH (06:09)
[2016-08-11 07:22] LABS: HEMATOCRIT 28.2 % (34.0-47.0); MEAN CELL VOLUME 78.9 fl (81.0-99.0); MEAN CORPUSCULAR HEMOGLOBIN 25.4 pg (27.0-31.0); MEAN CORPUSCULAR HGB CONC 32.2 g/dL (33.0-37.0); RED CELL DISTRIBUTION WIDTH 16.6 % (11.5-14.5); WHITE BLOOD COUNT 12.4 K/uL (4.8-10.8)
[2016-08-11] MEDS: Albuterol 0.083% Inhal Sol (2.5 mg/3 mL) UD INH SCH ×2 (07:32→19:33)
[2016-08-11] MEDS: guaiFENesin 600 mg ER Tab PO SCH ×3 (08:19→20:35)
[2016-08-11] MEDS: Pantoprazole 40 mg EC Tab PO SCH ×2 (08:20→16:11)
[2016-08-11] MEDS: HYDROmorphone 0.5 mg/0.5 ml ISec IVP PRN ×4 (08:20→17:33)
[2016-08-11] MEDS: Lidocaine 5% Patch TD SCH (08:23)
--- NOTE | 2016-08-11 10:03 | CP.PCM.PN ---
Subjective - Date & Time of Evaluation Date of Evaluation: 08/11/16 Time of Evaluation: 09:00 - Subjective Subjective: NO CHEST PAIN BREATHING OK Objective - Vital Signs/Intake and Output Vital Signs (last 24 hours): Temp Pulse Resp BP Pulse Ox 98.9 F 96 H 20 137/80 96 08/11/16 08:10 08/11/16 08:10 08/11/16 08:10 08/11/16 08:10 08/11/16 08:10 - Medications Medications: Current Medications Albuterol Sulfate (Albuterol 0.083% Inhal Martha (2.5 Mg/3 Ml) Ud) 2.5 mg INH RBID [facility] Last Admin: 08/11/16 07:32 Dose: 2.5 mg Atorvastatin Calcium (Lipitor) 20 mg PO DAILY [facility] Last Admin: 08/11/16 08:19 Dose: Not Given Cyclobenzaprine HCl (Flexeril) 5 mg PO TID [facility] Last Admin: 08/11/16 08:19 Dose: Not Given Docusate Sodium (Colace) 100 mg PO BID [facility] Last Admin: 08/11/16 08:18 Dose: Not Given Fentanyl (Duragesic) 1 patch TD Q3D [facility] PRN Reason: Protocol Last Admin: 08/11/16 08:31 Dose: Not Given Ferrous Sulfate (Feosol) 325 mg PO BID [facility] Last Admin: 08/11/16 08:19 Dose: Not Given Gabapentin (Neurontin) 100 mg PO BID [facility] Last Admin: 08/11/16 08:19 Dose: Not Given Guaifenesin (Mucinex La) 600 mg PO Q12 [facility] Last Admin: 08/11/16 08:19 Dose: Not Given Hydromorphone HCl (Dilaudid) 0.5 mg IVP Q4 PRN PRN Reason: Pain, severe (8-10) Last Admin: 08/11/16 08:20 Dose: 0.5 mg Azithromycin 500 mg/ Sodium (Chloride) 250 mls @ 250 mls/hr IVPB DAILY [facility] Last Admin: 08/10/16 12:20 Dose: 100 mls Ceftriaxone Sodium 1 gm/ (Sodium Chloride) 100 mls @ 100 mls/hr IVPB DAILY [facility] Last Admin: 08/11/16 08:23 Dose: 100 mls/hr Sodium Chloride (Sodium Chloride 0.9%) 1,000 mls @ 70 mls/hr IV .[id number] [facility] Last Admin: 08/11/16 05:26 Dose: Not Given Ketorolac Tromethamine (Toradol) 30 mg IVP Q6 PRN PRN Reason: Pain, severe (8-10) Last Admin: 08/10/16 23:48 Dose: 30 mg Levothyroxine Sodium (Synthroid) 88 mcg PO DAILY@0630 [facility] Last Admin: 08/11/16 06:09 Dose: Not Given Lidocaine (Lidoderm) 2 ea TD DAILY [facility] Last Admin: 08/11/16 08:23 Dose: 2 ea Oxycodone/Acetaminophen (Percocet 5/325 Mg Tab) 1 tab PO Q6 PRN PRN Reason: Pain, moderate (4-7) Stop: 08/12/16 14:59 Pantoprazole Sodium (Protonix Ec Tab) 40 mg PO DAILY [facility] Last Admin: 08/11/16 08:20 Dose: Not Given Tramadol HCl (Ultram) 50 mg PO Q4 PRN PRN Reason: Pain, moderate (4-7) Last Admin: 08/06/16 22:19 Dose: 50 mg - Labs Labs: 08/11/16 05:45 08/10/16 06:40 PT 13.5 SECONDS (9.6-11.2) H 08/11/16 05:45 INR 1.30 (0.92-1.08) H 08/11/16 05:45 APTT 32.0 SECONDS (23.3-32.5) 08/06/16 06:50 - Respiratory Exam Respiratory Exam: Rales - Cardiovascular Exam Cardiovascular Exam: REGULAR RHYTHM, +S1, +S2 - Additional Findings Additional findings: DR VILLALBA'S NOTE REVIEWED AND PT DISCUSSED WITH HER AND ABOUT RML NARROWING ON BRONCHOSCOPY DR MUNOZ WAS SPOKEN TO ABOUT L5 LESION AND RECOMMENDATION OF L5 BX AND TRANSFER TO [facility] IF DECISION IS MADE TO HAVE SURGERY ABDOMINAL US REPORT NOTED WITH LIVER NODULE Assessment and Plan - Assessment and Plan (Free Text) Assessment: HYPERLIPIDEMIA PNEUMONIA AND POSSIBLE LUNG TUMOR L5 LESION LIVER NODULE Plan: FOR L5 TISSUE BIOPSY
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
[2016-08-11] MEDS ORDERED: Lidocaine 1% Inj (20ml) ONE (11:06)
[2016-08-11] MEDS: Potassium Chloride 20 mEq/15 ml LIQ UD PO ONE ×2 (11:16→16:13)
[2016-08-11] MEDS ORDERED: Midazolam 2 MG/2 ML VIAL ONE (11:17)
[2016-08-11] MEDS ORDERED: Sodium Chloride 0.9% 100 ML ONE (11:21)
--- NOTE | 2016-08-11 11:59 | PCM.SURG1 ---
Surgeon's Initial Post Op Note - Surgeon's Notes Surgeon: Celestino Gilmore MD Investigative Reporter: None Type of Anesthesia: IV Sedation Pre-Operative Diagnosis: Lytic L5 bone mass Operative Findings: CT showed lytic mass L5 Post-Operative Diagnosis: Lytic L5 bone mass Operation Performed: CT guided L5 biopsy. Three 18 gauge core specimen obtained. Specimen/Specimens Removed: 18 g core x 3 Estimated Blood Loss: EBL {In ML}: 1 Blood Products Given: N/A Drains Used: No Drains Post-Op Condition: Fair Date of Surgery/Procedure: 08/11/16 Time of Surgery/Procedure: 11:55
[2016-08-11] MEDS ORDERED: Sodium Chloride 0.9% 500 ML IV ONE (12:00)
[2016-08-11] MEDS ORDERED: Sodium Chloride 0.9% 1,000 ML IV SCH (12:15)
--- NOTE | 2016-08-11 13:56 | CT ---
PROCEDURE: < Date of procedure: 08/11/2016 Procedure: CT-guided L5 spinal mass biopsy CT guidance for biopsy, [id number] Medications: The patient sedated by the anesthesiologist with IV sedation, 10 cc 2 percent lidocaine HISTORY: Lytic mass L5 TECHNIQUE: Following informed consent and procedure time-out, patient placed right lateral decubitus position on the CT table and noncontrast scan confirmed the presence destructive bone lesion involving the L5 vertebral body. There is a large paraspinal component. Using coaxial technique, 17 gauge needle was advanced under CT guidance towards the cortex. Three 18 gauge core specimen was removed and sent for routine histology. A post biopsy CT scan showed no hematoma. IMPRESSION: CT-guided core biopsy of L5 vertebral body mass.
--- NOTE | 2016-08-11 14:35 | CP.PCM.PN ---
Subjective - Date & Time of Evaluation Date of Evaluation: 08/10/16 Time of Evaluation: 09:20 - Subjective Subjective: Has back pain Objective - Vital Signs/Intake and Output Vital Signs (last 24 hours): Temp Pulse Resp BP Pulse Ox 99.2 F 92 H 18 131/79 97 08/11/16 14:00 08/11/16 14:00 08/11/16 14:00 08/11/16 14:00 08/11/16 14:00 Intake and Output: 08/11/16 08/11/16 06:59 18:59 Intake Total 100 Balance 100 - Medications Medications: Current Medications Albuterol Sulfate (Albuterol 0.083% Inhal Martha (2.5 Mg/3 Ml) Ud) 2.5 mg INH RBID [facility] Last Admin: 08/11/16 07:32 Dose: 2.5 mg Atorvastatin Calcium (Lipitor) 20 mg PO DAILY [facility] Last Admin: 08/11/16 08:19 Dose: Not Given Cyclobenzaprine HCl (Flexeril) 5 mg PO TID [facility] Last Admin: 08/11/16 08:19 Dose: Not Given Docusate Sodium (Colace) 100 mg PO BID [facility] Last Admin: 08/11/16 08:18 Dose: Not Given Fentanyl (Duragesic) 1 patch TD Q3D [facility] PRN Reason: Protocol Last Admin: 08/11/16 08:31 Dose: Not Given Ferrous Sulfate (Feosol) 325 mg PO BID [facility] Last Admin: 08/11/16 08:19 Dose: Not Given Gabapentin (Neurontin) 100 mg PO BID [facility] Last Admin: 08/11/16 08:19 Dose: Not Given Guaifenesin (Mucinex La) 600 mg PO Q12 [facility] Last Admin: 08/11/16 08:19 Dose: Not Given Hydromorphone HCl (Dilaudid) 0.5 mg IVP Q4 PRN PRN Reason: Pain, severe (8-10) Last Admin: 08/11/16 13:05 Dose: 0.5 mg Azithromycin 500 mg/ Sodium (Chloride) 250 mls @ 250 mls/hr IVPB DAILY [facility] Last Admin: 08/10/16 12:20 Dose: 100 mls Ceftriaxone Sodium 1 gm/ (Sodium Chloride) 100 mls @ 100 mls/hr IVPB DAILY [facility] Last Admin: 08/11/16 08:23 Dose: 100 mls/hr Sodium Chloride (Sodium Chloride 0.9%) 1,000 mls @ 70 mls/hr IV .[id number] [facility] Last Admin: 08/11/16 05:26 Dose: Not Given Sodium Chloride (Sodium Chloride 0.9%) 1,000 mls @ 100 mls/hr IV .Q10H [facility] Ketorolac Tromethamine (Toradol) 30 mg IVP Q6 PRN PRN Reason: Pain, severe (8-10) Last Admin: 08/10/16 23:48 Dose: 30 mg Levothyroxine Sodium (Synthroid) 88 mcg PO DAILY@0630 [facility] Last Admin: 08/11/16 06:09 Dose: Not Given Lidocaine (Lidoderm) 2 ea TD DAILY [facility] Last Admin: 08/11/16 08:23 Dose: 2 ea Oxycodone/Acetaminophen (Percocet 5/325 Mg Tab) 1 tab PO Q6 PRN PRN Reason: Pain, moderate (4-7) Stop: 08/12/16 14:59 Pantoprazole Sodium (Protonix Ec Tab) 40 mg PO DAILY [facility] Last Admin: 08/11/16 08:20 Dose: Not Given Tramadol HCl (Ultram) 50 mg PO Q4 PRN PRN Reason: Pain, moderate (4-7) Last Admin: 08/06/16 22:19 Dose: 50 mg - Labs Labs: 08/11/16 05:45 08/10/16 06:40 PT 13.5 SECONDS (9.6-11.2) H 08/11/16 05:45 INR 1.30 (0.92-1.08) H 08/11/16 05:45 APTT 32.0 SECONDS (23.3-32.5) 08/06/16 06:50 - Head Exam Head Exam: ATRAUMATIC - Eye Exam Eye Exam: Normal appearance - ENT Exam ENT Exam: Mucous Membranes Dry - Respiratory Exam Respiratory Exam: NORMAL BREATHING PATTERN - Cardiovascular Exam Cardiovascular Exam: +S1, +S2 - GI/Abdominal Exam GI & Abdominal Exam: Normal Bowel Sounds - Extremities Exam Extremities Exam: Pedal Edema Assessment and Plan (1) Pathologic fracture Assessment & Plan: for brochoscopy and L5 lesion biopsy f/u path likely malignancy neurosurg f/u Status: Acute (2) Anemia Assessment & Plan: chronic disease Status: Acute
--- NOTE | 2016-08-11 14:37 | CP.PCM.PN ---
Subjective - Date & Time of Evaluation Date of Evaluation: 08/11/16 Time of Evaluation: 14:30 - Subjective Subjective: Has back pain Objective - Vital Signs/Intake and Output Vital Signs (last 24 hours): Temp Pulse Resp BP Pulse Ox 99.2 F 92 H 18 131/79 97 08/11/16 14:00 08/11/16 14:00 08/11/16 14:00 08/11/16 14:00 08/11/16 14:00 Intake and Output: 08/11/16 08/11/16 06:59 18:59 Intake Total 100 Balance 100 - Medications Medications: Current Medications Albuterol Sulfate (Albuterol 0.083% Inhal Martha (2.5 Mg/3 Ml) Ud) 2.5 mg INH RBID [facility] Last Admin: 08/11/16 07:32 Dose: 2.5 mg Atorvastatin Calcium (Lipitor) 20 mg PO DAILY [facility] Last Admin: 08/11/16 08:19 Dose: Not Given Cyclobenzaprine HCl (Flexeril) 5 mg PO TID [facility] Last Admin: 08/11/16 08:19 Dose: Not Given Docusate Sodium (Colace) 100 mg PO BID [facility] Last Admin: 08/11/16 08:18 Dose: Not Given Fentanyl (Duragesic) 1 patch TD Q3D [facility] PRN Reason: Protocol Last Admin: 08/11/16 08:31 Dose: Not Given Ferrous Sulfate (Feosol) 325 mg PO BID [facility] Last Admin: 08/11/16 08:19 Dose: Not Given Gabapentin (Neurontin) 100 mg PO BID [facility] Last Admin: 08/11/16 08:19 Dose: Not Given Guaifenesin (Mucinex La) 600 mg PO Q12 [facility] Last Admin: 08/11/16 08:19 Dose: Not Given Hydromorphone HCl (Dilaudid) 0.5 mg IVP Q4 PRN PRN Reason: Pain, severe (8-10) Last Admin: 08/11/16 13:05 Dose: 0.5 mg Azithromycin 500 mg/ Sodium (Chloride) 250 mls @ 250 mls/hr IVPB DAILY [facility] Last Admin: 08/10/16 12:20 Dose: 100 mls Ceftriaxone Sodium 1 gm/ (Sodium Chloride) 100 mls @ 100 mls/hr IVPB DAILY [facility] Last Admin: 08/11/16 08:23 Dose: 100 mls/hr Sodium Chloride (Sodium Chloride 0.9%) 1,000 mls @ 70 mls/hr IV .[id number] [facility] Last Admin: 08/11/16 05:26 Dose: Not Given Sodium Chloride (Sodium Chloride 0.9%) 1,000 mls @ 100 mls/hr IV .Q10H [facility] Ketorolac Tromethamine (Toradol) 30 mg IVP Q6 PRN PRN Reason: Pain, severe (8-10) Last Admin: 08/10/16 23:48 Dose: 30 mg Levothyroxine Sodium (Synthroid) 88 mcg PO DAILY@0630 [facility] Last Admin: 08/11/16 06:09 Dose: Not Given Lidocaine (Lidoderm) 2 ea TD DAILY [facility] Last Admin: 08/11/16 08:23 Dose: 2 ea Oxycodone/Acetaminophen (Percocet 5/325 Mg Tab) 1 tab PO Q6 PRN PRN Reason: Pain, moderate (4-7) Stop: 08/12/16 14:59 Pantoprazole Sodium (Protonix Ec Tab) 40 mg PO DAILY [facility] Last Admin: 08/11/16 08:20 Dose: Not Given Tramadol HCl (Ultram) 50 mg PO Q4 PRN PRN Reason: Pain, moderate (4-7) Last Admin: 08/06/16 22:19 Dose: 50 mg - Labs Labs: 08/11/16 05:45 08/10/16 06:40 PT 13.5 SECONDS (9.6-11.2) H 08/11/16 05:45 INR 1.30 (0.92-1.08) H 08/11/16 05:45 APTT 32.0 SECONDS (23.3-32.5) 08/06/16 06:50 - Head Exam Head Exam: ATRAUMATIC - Eye Exam Eye Exam: Normal appearance - ENT Exam ENT Exam: Mucous Membranes Dry - Respiratory Exam Respiratory Exam: NORMAL BREATHING PATTERN - Cardiovascular Exam Cardiovascular Exam: +S1, +S2 - GI/Abdominal Exam GI & Abdominal Exam: Normal Bowel Sounds - Extremities Exam Extremities Exam: Normal Inspection Assessment and Plan (1) Pathologic fracture Assessment & Plan: likely malignancy s/p bronch and L5 lesion biopsy; path pending neurosurgery f/u further treatment recs based on pathology Status: Acute (2) Anemia Assessment & Plan: anemia of chronic disease Status: Acute
[2016-08-12] MEDS: HYDROmorphone 0.5 mg/0.5 ml ISec IVP PRN ×5 (01:23→18:19)
[2016-08-12] MEDS: Levothyroxine 88 MCG TAB PO SCH (05:49)
[2016-08-12] MEDS: Albuterol 0.083% Inhal Sol (2.5 mg/3 mL) UD INH SCH ×2 (07:39→19:07)
[2016-08-12 07:40] LABS: BASO # 0.1 K/uL (0.0-0.2); BASO % 0.8 % (0.0-2.0); EOS # 0.2 K/uL (0.0-0.7); EOS % 1.6 % (0.0-4.0); HEMATOCRIT 28.7 % (34.0-47.0); LYMPH % 8.1 % (20.0-40.0); MEAN CELL VOLUME 78.6 fl (81.0-99.0); MEAN CORPUSCULAR HEMOGLOBIN 25.9 pg (27.0-31.0); MEAN CORPUSCULAR HGB CONC 32.9 g/dL (33.0-37.0); MEAN PLATELET VOLUME 6.6 fl (7.2-11.7); MONO # 0.9 K/uL (0.0-0.8); MONO % 7.2 % (0.0-10.0); NEUT # 10.3 K/uL (1.8-7.0); NEUT % 82.3 % (50.0-75.0); RED CELL DISTRIBUTION WIDTH 16.7 % (11.5-14.5); WHITE BLOOD COUNT 12.5 K/uL (4.8-10.8)
[2016-08-12 07:43] LABS: BLOOD UREA NITROGEN 12 mg/dl (7-17); CARBON DIOXIDE 27 mmol/L (22-30); CHLORIDE 100 mmol/L (98-107); GFR AFRICAN-AMERICAN > 60; GLUCOSE,RANDOM 95 mg/dL (65-105); POTASSIUM 3.5 MMOL/L (3.6-5.0); SODIUM 135 mmol/l (132-148)
[2016-08-12 07:47] LABS: PLATELET COUNT 546 K/uL (130-400)
[2016-08-12] MEDS: guaiFENesin 600 mg ER Tab PO SCH ×2 (08:10→21:01)
[2016-08-12] MEDS: Pantoprazole 40 mg EC Tab PO SCH (08:10)
[2016-08-12] MEDS: Lidocaine 5% Patch TD SCH (08:11)
[2016-08-12] MEDS: Azithromycin 500 MG in Sodium Chloride 0.9% 250 ML IVPB SCH (08:13)
[2016-08-12 10:25] LABS: METAMYELOCYTE 1 % (0-0); NEUTROPHIL 89 % (42-75); REACTIVE LYMPHOCYTES 1 % (0-0); TOTAL CELLS COUNTED 100
--- NOTE | 2016-08-12 13:38 | CP.PCM.PN ---
Subjective - Date & Time of Evaluation Date of Evaluation: 08/12/16 Time of Evaluation: 12:30 - Subjective Subjective: Seen sleeping, son at bedside Objective - Vital Signs/Intake and Output Vital Signs (last 24 hours): Temp Pulse Resp BP Pulse Ox 99.4 F 97 H 20 138/76 94 L 08/12/16 07:38 08/12/16 07:38 08/12/16 07:38 08/12/16 07:38 08/12/16 07:38 - Medications Medications: Current Medications Albuterol Sulfate (Albuterol 0.083% Inhal Martha (2.5 Mg/3 Ml) Ud) 2.5 mg INH RBID [facility] Last Admin: 08/12/16 07:39 Dose: 2.5 mg Atorvastatin Calcium (Lipitor) 20 mg PO DAILY [facility] Last Admin: 08/12/16 08:11 Dose: 20 mg Cyclobenzaprine HCl (Flexeril) 5 mg PO TID [facility] Last Admin: 08/12/16 12:41 Dose: 5 mg Docusate Sodium (Colace) 100 mg PO BID [facility] Last Admin: 08/12/16 08:09 Dose: 100 mg Fentanyl (Duragesic) 1 patch TD Q3D [facility] PRN Reason: Protocol Last Admin: 08/11/16 16:11 Dose: 1 patch Ferrous Sulfate (Feosol) 325 mg PO BID [facility] Last Admin: 08/12/16 08:10 Dose: 325 mg Gabapentin (Neurontin) 100 mg PO BID [facility] Last Admin: 08/12/16 08:10 Dose: 100 mg Guaifenesin (Mucinex La) 600 mg PO Q12 [facility] Last Admin: 08/12/16 08:10 Dose: 600 mg Hydromorphone HCl (Dilaudid) 0.5 mg IVP Q4 PRN PRN Reason: Pain, severe (8-10) Last Admin: 08/12/16 09:44 Dose: 0.5 mg Azithromycin 500 mg/ Sodium (Chloride) 250 mls @ 250 mls/hr IVPB DAILY [facility] Last Admin: 08/12/16 08:13 Dose: 250 mls/hr Ceftriaxone Sodium 1 gm/ (Sodium Chloride) 100 mls @ 100 mls/hr IVPB DAILY [facility] Last Admin: 08/12/16 08:13 Dose: 100 mls/hr Ketorolac Tromethamine (Toradol) 30 mg IVP Q6 PRN PRN Reason: Pain, severe (8-10) Last Admin: 08/11/16 20:36 Dose: 30 mg Levothyroxine Sodium (Synthroid) 88 mcg PO DAILY@0630 [facility] Last Admin: 08/12/16 05:49 Dose: 88 mcg Lidocaine (Lidoderm) 2 ea TD DAILY [facility] Last Admin: 08/12/16 08:11 Dose: 2 ea Oxycodone/Acetaminophen (Percocet 5/325 Mg Tab) 1 tab PO Q6 PRN PRN Reason: Pain, moderate (4-7) Stop: 08/12/16 14:59 Pantoprazole Sodium (Protonix Ec Tab) 40 mg PO DAILY [facility] Last Admin: 08/12/16 08:10 Dose: 40 mg Tramadol HCl (Ultram) 50 mg PO Q4 PRN PRN Reason: Pain, moderate (4-7) Last Admin: 08/06/16 22:19 Dose: 50 mg - Labs Labs: 08/12/16 07:15 08/12/16 07:15 PT 13.5 SECONDS (9.6-11.2) H 08/11/16 05:45 INR 1.30 (0.92-1.08) H 08/11/16 05:45 APTT 32.0 SECONDS (23.3-32.5) 08/06/16 06:50 - Head Exam Head Exam: ATRAUMATIC - Eye Exam Eye Exam: Normal appearance - ENT Exam ENT Exam: Mucous Membranes Dry - Respiratory Exam Respiratory Exam: NORMAL BREATHING PATTERN - Cardiovascular Exam Cardiovascular Exam: +S1, +S2 - GI/Abdominal Exam GI & Abdominal Exam: Normal Bowel Sounds Assessment and Plan (1) Pathologic fracture Assessment & Plan: likely from malignancy s/p L5 lesion biopsy f/u path Status: Acute (2) Anemia Assessment & Plan: chronic disease Status: Acute
--- NOTE | 2016-08-12 14:56 | CP.PCM.PN ---
Subjective - Date & Time of Evaluation Date of Evaluation: 08/12/16 Time of Evaluation: 09:00 - Subjective Subjective: NO CARDIAC COMPLAINTS Objective - Vital Signs/Intake and Output Vital Signs (last 24 hours): Temp Pulse Resp BP Pulse Ox 99.4 F 97 H 20 138/76 94 L 08/12/16 07:38 08/12/16 07:38 08/12/16 07:38 08/12/16 07:38 08/12/16 07:38 - Medications Medications: Current Medications Albuterol Sulfate (Albuterol 0.083% Inhal Martha (2.5 Mg/3 Ml) Ud) 2.5 mg INH RBID [facility] Last Admin: 08/12/16 07:39 Dose: 2.5 mg Atorvastatin Calcium (Lipitor) 20 mg PO DAILY [facility] Last Admin: 08/12/16 08:11 Dose: 20 mg Cyclobenzaprine HCl (Flexeril) 5 mg PO TID [facility] Last Admin: 08/12/16 12:41 Dose: 5 mg Docusate Sodium (Colace) 100 mg PO BID [facility] Last Admin: 08/12/16 08:09 Dose: 100 mg Fentanyl (Duragesic) 1 patch TD Q3D [facility] PRN Reason: Protocol Last Admin: 08/11/16 16:11 Dose: 1 patch Ferrous Sulfate (Feosol) 325 mg PO BID [facility] Last Admin: 08/12/16 08:10 Dose: 325 mg Gabapentin (Neurontin) 100 mg PO BID [facility] Last Admin: 08/12/16 08:10 Dose: 100 mg Guaifenesin (Mucinex La) 600 mg PO Q12 [facility] Last Admin: 08/12/16 08:10 Dose: 600 mg Hydromorphone HCl (Dilaudid) 0.5 mg IVP Q4 PRN PRN Reason: Pain, severe (8-10) Last Admin: 08/12/16 09:44 Dose: 0.5 mg Azithromycin 500 mg/ Sodium (Chloride) 250 mls @ 250 mls/hr IVPB DAILY [facility] Last Admin: 08/12/16 08:13 Dose: 250 mls/hr Ceftriaxone Sodium 1 gm/ (Sodium Chloride) 100 mls @ 100 mls/hr IVPB DAILY [facility] Last Admin: 08/12/16 08:13 Dose: 100 mls/hr Ketorolac Tromethamine (Toradol) 30 mg IVP Q6 PRN PRN Reason: Pain, severe (8-10) Last Admin: 08/11/16 20:36 Dose: 30 mg Levothyroxine Sodium (Synthroid) 88 mcg PO DAILY@0630 [facility] Last Admin: 08/12/16 05:49 Dose: 88 mcg Lidocaine (Lidoderm) 2 ea TD DAILY [facility] Last Admin: 08/12/16 08:11 Dose: 2 ea Oxycodone/Acetaminophen (Percocet 5/325 Mg Tab) 1 tab PO Q6 PRN PRN Reason: Pain, moderate (4-7) Stop: 08/12/16 14:59 Pantoprazole Sodium (Protonix Ec Tab) 40 mg PO DAILY [facility] Last Admin: 08/12/16 08:10 Dose: 40 mg Tramadol HCl (Ultram) 50 mg PO Q4 PRN PRN Reason: Pain, moderate (4-7) Last Admin: 08/06/16 22:19 Dose: 50 mg - Labs Labs: 08/12/16 07:15 08/12/16 07:15 PT 13.5 SECONDS (9.6-11.2) H 08/11/16 05:45 INR 1.30 (0.92-1.08) H 08/11/16 05:45 APTT 32.0 SECONDS (23.3-32.5) 08/06/16 06:50 - Respiratory Exam Respiratory Exam: Clear to Ausculation Bilateral - Cardiovascular Exam Cardiovascular Exam: REGULAR RHYTHM, +S1, +S2 Assessment and Plan - Assessment and Plan (Free Text) Assessment: HYPERLIPIDEMIA L5 LESION, HUMERUS LESION AND LIVER NODULE Plan: AWAITING L5 BX RESULTS
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
[2016-08-13] MEDS: HYDROmorphone 0.5 mg/0.5 ml ISec IVP PRN ×5 (00:18→18:52)
[2016-08-13] MEDS: Levothyroxine 88 MCG TAB PO SCH (06:09)
[2016-08-13 07:37] LABS: HEMATOCRIT 29.3 % (34.0-47.0); MEAN CELL VOLUME 79.3 fl (81.0-99.0); MEAN CORPUSCULAR HEMOGLOBIN 25.7 pg (27.0-31.0); MEAN CORPUSCULAR HGB CONC 32.4 g/dL (33.0-37.0); RED CELL DISTRIBUTION WIDTH 16.4 % (11.5-14.5); WHITE BLOOD COUNT 11.7 K/uL (4.8-10.8)
[2016-08-13] MEDS: Albuterol 0.083% Inhal Sol (2.5 mg/3 mL) UD INH SCH ×2 (07:54→19:33)
[2016-08-13 07:59] LABS: BLOOD UREA NITROGEN 14 mg/dl (7-17); CALCIUM 9.4 mg/dL (8.4-10.2); CARBON DIOXIDE 32 mmol/L (22-30); CHLORIDE 100 mmol/L (98-107); GFR AFRICAN-AMERICAN > 60; GLUCOSE,RANDOM 89 mg/dL (65-105); POTASSIUM 3.8 MMOL/L (3.6-5.0); SODIUM 139 mmol/l (132-148)
[2016-08-13] MEDS: Pantoprazole 40 mg EC Tab PO SCH (09:48)
[2016-08-13] MEDS: guaiFENesin 600 mg ER Tab PO SCH ×2 (09:48→21:12)
[2016-08-13] MEDS: Lidocaine 5% Patch TD SCH (09:50)
[2016-08-13] MEDS: Azithromycin 500 MG in Sodium Chloride 0.9% 250 ML IVPB SCH (09:53)
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
--- NOTE | 2016-08-13 10:57 | CP.PCM.PN ---
Subjective - Date & Time of Evaluation Date of Evaluation: 08/13/16 Time of Evaluation: 10:00 - Subjective Subjective: NO CHEST PAIN HAS CHRONIC LOWER BACK PAIN Objective - Vital Signs/Intake and Output Vital Signs (last 24 hours): Temp Pulse Resp BP Pulse Ox 97.9 F 77 20 114/70 98 08/13/16 07:58 08/13/16 07:58 08/13/16 07:58 08/13/16 07:58 08/13/16 07:58 - Medications Medications: Current Medications Albuterol Sulfate (Albuterol 0.083% Inhal Martha (2.5 Mg/3 Ml) Ud) 2.5 mg INH RBID [facility] Last Admin: 08/13/16 07:54 Dose: 2.5 mg Atorvastatin Calcium (Lipitor) 20 mg PO DAILY [facility] Last Admin: 08/13/16 09:49 Dose: 20 mg Cyclobenzaprine HCl (Flexeril) 5 mg PO TID [facility] Last Admin: 08/13/16 09:47 Dose: 5 mg Docusate Sodium (Colace) 100 mg PO BID [facility] Last Admin: 08/13/16 09:49 Dose: 100 mg Fentanyl (Duragesic) 1 patch TD Q3D [facility] PRN Reason: Protocol Last Admin: 08/11/16 16:11 Dose: 1 patch Ferrous Sulfate (Feosol) 325 mg PO BID [facility] Last Admin: 08/13/16 09:48 Dose: 325 mg Gabapentin (Neurontin) 100 mg PO BID [facility] Last Admin: 08/13/16 09:49 Dose: 100 mg Guaifenesin (Mucinex La) 600 mg PO Q12 [facility] Last Admin: 08/13/16 09:48 Dose: 600 mg Hydromorphone HCl (Dilaudid) 0.5 mg IVP Q4 PRN PRN Reason: Pain, severe (8-10) Last Admin: 08/13/16 10:22 Dose: 0.5 mg Azithromycin 500 mg/ Sodium (Chloride) 250 mls @ 250 mls/hr IVPB DAILY [facility] Last Admin: 08/13/16 09:53 Dose: 250 mls/hr Ceftriaxone Sodium 1 gm/ (Sodium Chloride) 100 mls @ 100 mls/hr IVPB DAILY [facility] Last Admin: 08/13/16 09:52 Dose: 100 mls/hr Ketorolac Tromethamine (Toradol) 30 mg IVP Q6 PRN PRN Reason: Pain, severe (8-10) Last Admin: 08/13/16 03:12 Dose: 30 mg Levothyroxine Sodium (Synthroid) 88 mcg PO DAILY@0630 [facility] Last Admin: 08/13/16 06:09 Dose: 88 mcg Lidocaine (Lidoderm) 2 ea TD DAILY [facility] Last Admin: 08/13/16 09:50 Dose: 2 ea Pantoprazole Sodium (Protonix Ec Tab) 40 mg PO DAILY [facility] Last Admin: 08/13/16 09:48 Dose: 40 mg Tramadol HCl (Ultram) 50 mg PO Q4 PRN PRN Reason: Pain, moderate (4-7) Last Admin: 08/06/16 22:19 Dose: 50 mg - Labs Labs: 08/13/16 07:25 08/13/16 07:25 PT 13.5 SECONDS (9.6-11.2) H 08/11/16 05:45 INR 1.30 (0.92-1.08) H 08/11/16 05:45 APTT 32.0 SECONDS (23.3-32.5) 08/06/16 06:50 - Respiratory Exam Respiratory Exam: Rhonchi - Cardiovascular Exam Cardiovascular Exam: REGULAR RHYTHM, +S1, +S2 - Additional Findings Additional findings: L5 BX REPORT PENDING HUMERUS BIOPSY REPORT NOTED Assessment and Plan - Assessment and Plan (Free Text) Assessment: L5 LESION LEFT HUMERUS LESION AND FRACTURE HYPERLIPIDEMIA Plan: CONTINUE ATORVASTATIN AWAITING L5 BX REPORT
--- NOTE | 2016-08-13 12:00 | CP.PCM.PN ---
Subjective - Date & Time of Evaluation Date of Evaluation: 08/13/16 Time of Evaluation: 12:00 - Subjective Subjective: Seen on morning rounds. Lying in bed conversing on the phone. Her son is at the bedside. Her mood appears to be improved from prior encounters. Neck is supple and trachea only slightly deviated to the right. Breath sounds are present bilaterally w/o wheezing or bronchial breathing. Few rhonchi are present on the right lower, dependant areas. Path results have been discussed with Dr Roy. Non-small cell carcinoma c/w adeno ca or large cell ca. Tumor does not express markers making better ID difficult. Followup CXR shows persistence of the RML atelectasis. Objective - Vital Signs/Intake and Output Vital Signs (last 24 hours): Temp Pulse Resp BP Pulse Ox 97.9 F 77 20 114/70 98 08/13/16 07:58 08/13/16 07:58 08/13/16 07:58 08/13/16 07:58 08/13/16 07:58 - Medications Medications: Current Medications Albuterol Sulfate (Albuterol 0.083% Inhal Martha (2.5 Mg/3 Ml) Ud) 2.5 mg INH RBID [facility] Last Admin: 08/13/16 07:54 Dose: 2.5 mg Atorvastatin Calcium (Lipitor) 20 mg PO DAILY [facility] Last Admin: 08/13/16 09:49 Dose: 20 mg Cyclobenzaprine HCl (Flexeril) 5 mg PO TID [facility] Last Admin: 08/13/16 09:47 Dose: 5 mg Docusate Sodium (Colace) 100 mg PO BID [facility] Last Admin: 08/13/16 09:49 Dose: 100 mg Fentanyl (Duragesic) 1 patch TD Q3D [facility] PRN Reason: Protocol Last Admin: 08/11/16 16:11 Dose: 1 patch Ferrous Sulfate (Feosol) 325 mg PO BID [facility] Last Admin: 08/13/16 09:48 Dose: 325 mg Gabapentin (Neurontin) 100 mg PO BID [facility] Last Admin: 08/13/16 09:49 Dose: 100 mg Guaifenesin (Mucinex La) 600 mg PO Q12 [facility] Last Admin: 08/13/16 09:48 Dose: 600 mg Hydromorphone HCl (Dilaudid) 0.5 mg IVP Q4 PRN PRN Reason: Pain, severe (8-10) Last Admin: 08/13/16 10:22 Dose: 0.5 mg Azithromycin 500 mg/ Sodium (Chloride) 250 mls @ 250 mls/hr IVPB DAILY [facility] Last Admin: 08/13/16 09:53 Dose: 250 mls/hr Ceftriaxone Sodium 1 gm/ (Sodium Chloride) 100 mls @ 100 mls/hr IVPB DAILY [facility] Last Admin: 08/13/16 09:52 Dose: 100 mls/hr Ketorolac Tromethamine (Toradol) 30 mg IVP Q6 PRN PRN Reason: Pain, severe (8-10) Last Admin: 08/13/16 03:12 Dose: 30 mg Levothyroxine Sodium (Synthroid) 88 mcg PO DAILY@0630 [facility] Last Admin: 08/13/16 06:09 Dose: 88 mcg Lidocaine (Lidoderm) 2 ea TD DAILY [facility] Last Admin: 08/13/16 09:50 Dose: 2 ea Pantoprazole Sodium (Protonix Ec Tab) 40 mg PO DAILY [facility] Last Admin: 08/13/16 09:48 Dose: 40 mg Tramadol HCl (Ultram) 50 mg PO Q4 PRN PRN Reason: Pain, moderate (4-7) Last Admin: 08/06/16 22:19 Dose: 50 mg - Labs Labs: 08/13/16 07:25 08/13/16 07:25 PT 13.5 SECONDS (9.6-11.2) H 08/11/16 05:45 INR 1.30 (0.92-1.08) H 08/11/16 05:45 APTT 32.0 SECONDS (23.3-32.5) 08/06/16 06:50 Assessment and Plan (1) Atelectasis, right Status: Acute (2) Pneumonia Status: Acute
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
[2016-08-13] MEDS ORDERED: Enoxaparin 40 mg Syringe SC SCH (16:00)
--- NOTE | 2016-08-13 17:43 | CP.PCM.PN ---
Subjective - Date & Time of Evaluation Date of Evaluation: 08/13/16 Time of Evaluation: 12:00 - Subjective Subjective: Has lower back pain son at bedside Discussed non small cell lung cancer diagnosis at length with the pt and son as well as treatment options. They wish to discuss things further before making any decisions. Objective - Vital Signs/Intake and Output Vital Signs (last 24 hours): Temp Pulse Resp BP Pulse Ox 97.9 F 77 20 114/70 98 08/13/16 07:58 08/13/16 07:58 08/13/16 07:58 08/13/16 07:58 08/13/16 07:58 - Medications Medications: Current Medications Albuterol Sulfate (Albuterol 0.083% Inhal Martha (2.5 Mg/3 Ml) Ud) 2.5 mg INH RBID [facility] Last Admin: 08/13/16 07:54 Dose: 2.5 mg Atorvastatin Calcium (Lipitor) 20 mg PO DAILY [facility] Last Admin: 08/13/16 09:49 Dose: 20 mg Cyclobenzaprine HCl (Flexeril) 5 mg PO TID [facility] Last Admin: 08/13/16 17:06 Dose: 5 mg Docusate Sodium (Colace) 100 mg PO BID [facility] Last Admin: 08/13/16 17:07 Dose: 100 mg Enoxaparin Sodium (Lovenox) 40 mg SC DAILY [facility] PRN Reason: Protocol Fentanyl (Duragesic) 1 patch TD Q3D [facility] PRN Reason: Protocol Last Admin: 08/11/16 16:11 Dose: 1 patch Ferrous Sulfate (Feosol) 325 mg PO BID [facility] Last Admin: 08/13/16 17:07 Dose: 325 mg Gabapentin (Neurontin) 100 mg PO BID [facility] Last Admin: 08/13/16 17:07 Dose: 100 mg Guaifenesin (Mucinex La) 600 mg PO Q12 [facility] Last Admin: 08/13/16 09:48 Dose: 600 mg Hydromorphone HCl (Dilaudid) 0.5 mg IVP Q4 PRN PRN Reason: Pain, severe (8-10) Last Admin: 08/13/16 14:31 Dose: 0.5 mg Azithromycin 500 mg/ Sodium (Chloride) 250 mls @ 250 mls/hr IVPB DAILY [facility] Last Admin: 08/13/16 09:53 Dose: 250 mls/hr Ceftriaxone Sodium 1 gm/ (Sodium Chloride) 100 mls @ 100 mls/hr IVPB DAILY [facility] Last Admin: 08/13/16 09:52 Dose: 100 mls/hr Levothyroxine Sodium (Synthroid) 88 mcg PO DAILY@0630 [facility] Last Admin: 08/13/16 06:09 Dose: 88 mcg Lidocaine (Lidoderm) 2 ea TD DAILY [facility] Last Admin: 08/13/16 09:50 Dose: 2 ea Pantoprazole Sodium (Protonix Ec Tab) 40 mg PO DAILY [facility] Last Admin: 08/13/16 09:48 Dose: 40 mg Tramadol HCl (Ultram) 50 mg PO Q4 PRN PRN Reason: Pain, moderate (4-7) Last Admin: 08/13/16 17:09 Dose: 50 mg - Labs Labs: 08/13/16 07:25 08/13/16 07:25 PT 13.5 SECONDS (9.6-11.2) H 08/11/16 05:45 INR 1.30 (0.92-1.08) H 08/11/16 05:45 APTT 32.0 SECONDS (23.3-32.5) 08/06/16 06:50 - Head Exam Head Exam: ATRAUMATIC - Eye Exam Eye Exam: Normal appearance - ENT Exam ENT Exam: Mucous Membranes Dry - Respiratory Exam Respiratory Exam: NORMAL BREATHING PATTERN - Cardiovascular Exam Cardiovascular Exam: +S1, +S2 - GI/Abdominal Exam GI & Abdominal Exam: Normal Bowel Sounds Assessment and Plan (1) Lung cancer Assessment & Plan: bone metastasis with pathologic fracture pt and family to make decision on treatment options but indicated they likely were not interested in surgery Status: Acute (2) Anemia Assessment & Plan: chronic disease Status: Acute
[2016-08-13] MEDS ORDERED: HYDROmorphone 0.5 mg/0.5 ml ISec IVP STA (21:01)
[2016-08-14] MEDS: HYDROmorphone 0.5 mg/0.5 ml ISec IVP PRN ×4 (01:14→14:15)
[2016-08-14] MEDS: Levothyroxine 88 MCG TAB PO SCH ×2 (06:49→07:50)
[2016-08-14] MEDS: Enoxaparin 40 mg Syringe SC SCH (09:33)
[2016-08-14] MEDS: guaiFENesin 600 mg ER Tab PO SCH ×2 (09:34→21:30)
--- NOTE | 2016-08-14 09:34 | CP.PCM.PN ---
Subjective - Date & Time of Evaluation Date of Evaluation: 08/14/16 Time of Evaluation: 07:30 - Subjective Subjective: NO CHEST PAIN BREATHING BETTER Objective - Vital Signs/Intake and Output Vital Signs (last 24 hours): Temp Pulse Resp BP Pulse Ox 98.8 F 98 H 20 132/78 96 08/14/16 07:41 08/14/16 07:41 08/14/16 07:41 08/14/16 07:41 08/14/16 07:41 - Medications Medications: Current Medications Albuterol Sulfate (Albuterol 0.083% Inhal Martha (2.5 Mg/3 Ml) Ud) 2.5 mg INH RBID [facility] Last Admin: 08/13/16 19:33 Dose: 2.5 mg Atorvastatin Calcium (Lipitor) 20 mg PO DAILY [facility] Last Admin: 08/13/16 09:49 Dose: 20 mg Cyclobenzaprine HCl (Flexeril) 5 mg PO TID [facility] Last Admin: 08/13/16 17:06 Dose: 5 mg Docusate Sodium (Colace) 100 mg PO BID [facility] Last Admin: 08/13/16 17:07 Dose: 100 mg Enoxaparin Sodium (Lovenox) 40 mg SC DAILY [facility] PRN Reason: Protocol Fentanyl (Duragesic) 1 patch TD Q3D [facility] PRN Reason: Protocol Last Admin: 08/14/16 07:50 Dose: 1 patch Ferrous Sulfate (Feosol) 325 mg PO BID [facility] Last Admin: 08/13/16 17:07 Dose: 325 mg Gabapentin (Neurontin) 100 mg PO BID [facility] Last Admin: 08/13/16 17:07 Dose: 100 mg Guaifenesin (Mucinex La) 600 mg PO Q12 [facility] Last Admin: 08/13/16 21:12 Dose: 600 mg Hydromorphone HCl (Dilaudid) 0.5 mg IVP Q4 PRN PRN Reason: Pain, severe (8-10) Last Admin: 08/14/16 05:01 Dose: 0.5 mg Azithromycin 500 mg/ Sodium (Chloride) 250 mls @ 250 mls/hr IVPB DAILY [facility] Last Admin: 08/13/16 09:53 Dose: 250 mls/hr Ceftriaxone Sodium 1 gm/ (Sodium Chloride) 100 mls @ 100 mls/hr IVPB DAILY [facility] Last Admin: 05/04/17 09:52 Dose: 100 mls/hr Levothyroxine Sodium (Synthroid) 88 mcg PO DAILY@0630 [facility] Last Admin: 08/14/16 07:50 Dose: 88 mcg Lidocaine (Lidoderm) 2 ea TD DAILY [facility] Last Admin: 08/13/16 09:50 Dose: 2 ea Pantoprazole Sodium (Protonix Ec Tab) 40 mg PO DAILY [facility] Last Admin: 08/13/16 09:48 Dose: 40 mg Tramadol HCl (Ultram) 50 mg PO Q4 PRN PRN Reason: Pain, moderate (4-7) Last Admin: 08/14/16 07:53 Dose: 50 mg - Labs Labs: 08/13/16 07:25 08/13/16 07:25 PT 13.5 SECONDS (9.6-11.2) H 08/11/16 05:45 INR 1.30 (0.92-1.08) H 08/11/16 05:45 APTT 32.0 SECONDS (23.3-32.5) 08/06/16 06:50 - Respiratory Exam Respiratory Exam: Rhonchi - Cardiovascular Exam Cardiovascular Exam: REGULAR RHYTHM, +S1, +S2 - Additional Findings Additional findings: NOTES FROM DR MEJIA, DR CHEEK AND DR MITCHELL REVIEWED Assessment and Plan - Assessment and Plan (Free Text) Assessment: HYPERLIPIDEMIA L5 LESION PNEUMONIA ORIF LEFT HUMERUS FRACTURE Plan: CONTINUE ATORVASTATIN I WILL SIGN OFF THE CASE NOW THE PATIENT IS STABLE FROM THE CARDIAC VIEWPOINT
[2016-08-14] MEDS: Pantoprazole 40 mg EC Tab PO SCH (09:35)
[2016-08-14] MEDS: Azithromycin 500 MG in Sodium Chloride 0.9% 250 ML IVPB SCH (09:38)
[2016-08-14] MEDS: Lidocaine 5% Patch TD SCH (09:38)
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
[2016-08-14] MEDS: Albuterol 0.083% Inhal Sol (2.5 mg/3 mL) UD INH SCH (20:16)
[2016-08-15] MEDS: Levothyroxine 88 MCG TAB PO SCH (06:51)
[2016-08-15] MEDS: Albuterol 0.083% Inhal Sol (2.5 mg/3 mL) UD INH SCH ×2 (07:47→19:09)
[2016-08-15] MEDS: HYDROmorphone 0.5 mg/0.5 ml ISec IVP PRN ×5 (08:20→22:45)
[2016-08-15] MEDS: Pantoprazole 40 mg EC Tab PO SCH (08:52)
[2016-08-15] MEDS: guaiFENesin 600 mg ER Tab PO SCH ×2 (08:52→20:08)
[2016-08-15] MEDS: Enoxaparin 40 mg Syringe SC SCH (08:53)
[2016-08-15] MEDS: Lidocaine 5% Patch TD SCH (08:57)
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
[2016-08-15] MEDS: Azithromycin 500 MG in Sodium Chloride 0.9% 250 ML IVPB SCH (10:14)
--- NOTE | 2016-08-15 21:20 | CP.PCM.PN ---
Subjective - Date & Time of Evaluation Date of Evaluation: 08/15/16 Time of Evaluation: 14:00 - Subjective Subjective: No complaints, back pain with movement Objective - Vital Signs/Intake and Output Vital Signs (last 24 hours): Temp Pulse Resp BP Pulse Ox 98.6 F 110 H 20 129/82 97 08/15/16 17:00 08/15/16 17:00 08/15/16 17:00 08/15/16 17:00 08/15/16 17:00 - Medications Medications: Current Medications Albuterol Sulfate (Albuterol 0.083% Inhal Martha (2.5 Mg/3 Ml) Ud) 2.5 mg INH RBID [facility] Last Admin: 08/15/16 19:09 Dose: 2.5 mg Atorvastatin Calcium (Lipitor) 20 mg PO DAILY [facility] Last Admin: 08/15/16 08:52 Dose: 20 mg Cyclobenzaprine HCl (Flexeril) 5 mg PO TID [facility] Last Admin: 08/15/16 16:19 Dose: 5 mg Docusate Sodium (Colace) 100 mg PO BID [facility] Last Admin: 08/15/16 16:20 Dose: 100 mg Enoxaparin Sodium (Lovenox) 40 mg SC DAILY [facility] PRN Reason: Protocol Last Admin: 08/15/16 08:53 Dose: 40 mg Fentanyl (Duragesic) 1 patch TD Q3D [facility] PRN Reason: Protocol Last Admin: 08/14/16 07:50 Dose: 1 patch Ferrous Sulfate (Feosol) 325 mg PO BID [facility] Last Admin: 08/15/16 16:20 Dose: 325 mg Gabapentin (Neurontin) 100 mg PO BID [facility] Last Admin: 08/15/16 16:20 Dose: 100 mg Guaifenesin (Mucinex La) 600 mg PO Q12 [facility] Last Admin: 08/15/16 20:08 Dose: 600 mg Hydromorphone HCl (Dilaudid) 0.5 mg IVP Q3 PRN PRN Reason: Pain, severe (8-10) Last Admin: 08/15/16 18:09 Dose: 0.5 mg Levothyroxine Sodium (Synthroid) 88 mcg PO DAILY@0630 [facility] Last Admin: 08/15/16 06:51 Dose: 88 mcg Lidocaine (Lidoderm) 2 ea TD DAILY [facility] Last Admin: 08/15/16 08:57 Dose: 2 ea Pantoprazole Sodium (Protonix Ec Tab) 40 mg PO DAILY [facility] Last Admin: 08/15/16 08:52 Dose: 40 mg Tramadol HCl (Ultram) 50 mg PO Q4 PRN PRN Reason: Pain, moderate (4-7) Last Admin: 08/15/16 20:09 Dose: 50 mg - Labs Labs: 08/13/16 07:25 08/13/16 07:25 PT 13.5 SECONDS (9.6-11.2) H 08/11/16 05:45 INR 1.30 (0.92-1.08) H 08/11/16 05:45 APTT 32.0 SECONDS (23.3-32.5) 08/06/16 06:50 - Head Exam Head Exam: ATRAUMATIC - Eye Exam Eye Exam: Normal appearance - ENT Exam ENT Exam: Mucous Membranes Dry - Respiratory Exam Respiratory Exam: NORMAL BREATHING PATTERN - Cardiovascular Exam Cardiovascular Exam: +S1, +S2 - GI/Abdominal Exam GI & Abdominal Exam: Normal Bowel Sounds Assessment and Plan (1) Lung cancer Assessment & Plan: non small cell lung cancer will add EGFR, ALK, and PDL1 testing on path specimen discussed treatment options with pt and family; they cont. to want to think about things Status: Acute (2) Anemia Assessment & Plan: chronic disease Status: Acute
[2016-08-16] MEDS: HYDROmorphone 0.5 mg/0.5 ml ISec IVP PRN ×3 (01:30→07:41)
[2016-08-16] MEDS: Levothyroxine 88 MCG TAB PO SCH (06:45)
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
[2016-08-16] MEDS: Albuterol 0.083% Inhal Sol (2.5 mg/3 mL) UD INH SCH ×2 (07:17→19:11)
[2016-08-16] MEDS: Lidocaine 5% Patch TD SCH (09:58)
[2016-08-16] MEDS: Enoxaparin 40 mg Syringe SC SCH (09:59)
[2016-08-16] MEDS: Pantoprazole 40 mg EC Tab PO SCH (10:00)
[2016-08-16] MEDS: guaiFENesin 600 mg ER Tab PO SCH ×2 (10:01→22:00)
[2016-08-17] MEDS: Levothyroxine 88 MCG TAB PO SCH (06:53)
[2016-08-17] MEDS: Albuterol 0.083% Inhal Sol (2.5 mg/3 mL) UD INH SCH ×2 (07:51→19:25)
[2016-08-17] MEDS: Pantoprazole 40 mg EC Tab PO SCH (08:51)
[2016-08-17] MEDS: guaiFENesin 600 mg ER Tab PO SCH ×2 (08:52→20:00)
[2016-08-17] MEDS: Enoxaparin 40 mg Syringe SC SCH (08:52)
[2016-08-17] MEDS: Lidocaine 5% Patch TD SCH (08:52)
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
[2016-08-17] MEDS ORDERED: Hydrogen Peroxide 3% Soln (480ml) TP ONE (13:02)
--- NOTE | 2016-08-17 14:47 | CP.PCM.PN ---
Subjective - Date & Time of Evaluation Date of Evaluation: 08/17/16 Time of Evaluation: 14:45 - Subjective Subjective: S- ptcomfortable with respect to L upper extremity splintage Objective - Vital Signs/Intake and Output Vital Signs (last 24 hours): Temp Pulse Resp BP Pulse Ox 98.7 F 116 H 18 124/80 95 08/17/16 07:26 08/17/16 07:26 08/17/16 07:26 08/17/16 07:26 08/17/16 07:26 - Medications Medications: Current Medications Albuterol Sulfate (Albuterol 0.083% Inhal Martha (2.5 Mg/3 Ml) Ud) 2.5 mg INH RBID [facility] Last Admin: 08/17/16 07:51 Dose: 2.5 mg Atorvastatin Calcium (Lipitor) 20 mg PO DAILY [facility] Last Admin: 08/17/16 08:52 Dose: 20 mg Cyclobenzaprine HCl (Flexeril) 10 mg PO Q8 [facility] Last Admin: 08/17/16 08:51 Dose: 10 mg Docusate Sodium (Colace) 100 mg PO BID [facility] Last Admin: 08/17/16 08:51 Dose: 100 mg Enoxaparin Sodium (Lovenox) 40 mg SC DAILY [facility] PRN Reason: Protocol Last Admin: 08/17/16 08:52 Dose: 40 mg Fentanyl (Duragesic) 1 patch TD Q3D [facility] PRN Reason: Protocol Last Admin: 08/17/16 11:11 Dose: 1 patch Ferrous Sulfate (Feosol) 325 mg PO BID [facility] Last Admin: 08/17/16 08:52 Dose: 325 mg Gabapentin (Neurontin) 200 mg PO Q12 [facility] Last Admin: 08/17/16 08:51 Dose: 200 mg Guaifenesin (Mucinex La) 600 mg PO Q12 [facility] Last Admin: 08/17/16 08:52 Dose: 600 mg Levothyroxine Sodium (Synthroid) 88 mcg PO DAILY@0630 [facility] Last Admin: 08/17/16 06:53 Dose: 88 mcg Lidocaine (Lidoderm) 2 ea TD DAILY [facility] Last Admin: 08/17/16 08:52 Dose: 2 ea Morphine Sulfate (Morphine) 4 mg IVP Q2 PRN PRN Reason: Pain, severe (8-10) Last Admin: 08/17/16 14:21 Dose: 4 mg Pantoprazole Sodium (Protonix Ec Tab) 40 mg PO DAILY [facility] Last Admin: 08/17/16 08:51 Dose: 40 mg Tramadol HCl (Ultram) 50 mg PO Q4 PRN PRN Reason: Pain, moderate (4-7) Last Admin: 08/16/16 06:47 Dose: 50 mg - Labs Labs: 08/13/16 07:25 08/13/16 07:25 PT 13.5 SECONDS (9.6-11.2) H 08/11/16 05:45 INR 1.30 (0.92-1.08) H 08/11/16 05:45 APTT 32.0 SECONDS (23.3-32.5) 08/06/16 06:50 - Additional Findings Additional findings: Objective Musculoskeltsal exam stancwegait- defrred pt comfortable at bedrest N/V intact no gross/progressive deficit orthopedically stable Assessment and Plan - Assessment and Plan (Free Text) Assessment: A- s/p successful ORIF L humerus fx P - orthopedicalkly stable L5 mass to be managed by neurosurgery sytemic mgmt as per piulmonary and oncology
--- NOTE | 2016-08-17 20:52 | CP.PCM.PN ---
Subjective - Date & Time of Evaluation Date of Evaluation: 08/17/16 Time of Evaluation: 09:00 - Subjective Subjective: No complaints, son at bedside Objective - Vital Signs/Intake and Output Vital Signs (last 24 hours): Temp Pulse Resp BP Pulse Ox 99.7 F H 118 H 20 127/79 97 08/17/16 16:10 08/17/16 16:10 08/17/16 16:10 08/17/16 16:10 08/17/16 16:10 - Medications Medications: Current Medications Albuterol Sulfate (Albuterol 0.083% Inhal Martha (2.5 Mg/3 Ml) Ud) 2.5 mg INH RBID [facility] Last Admin: 08/17/16 19:25 Dose: 2.5 mg Atorvastatin Calcium (Lipitor) 20 mg PO DAILY [facility] Last Admin: 08/17/16 08:52 Dose: 20 mg Cyclobenzaprine HCl (Flexeril) 10 mg PO Q8 [facility] Last Admin: 08/17/16 17:27 Dose: 10 mg Docusate Sodium (Colace) 100 mg PO BID [facility] Last Admin: 08/17/16 17:27 Dose: 100 mg Enoxaparin Sodium (Lovenox) 40 mg SC DAILY [facility] PRN Reason: Protocol Last Admin: 08/17/16 08:52 Dose: 40 mg Fentanyl (Duragesic) 1 patch TD Q3D [facility] PRN Reason: Protocol Last Admin: 08/17/16 11:11 Dose: 1 patch Ferrous Sulfate (Feosol) 325 mg PO BID [facility] Last Admin: 08/17/16 17:27 Dose: 325 mg Gabapentin (Neurontin) 200 mg PO Q12 [facility] Last Admin: 08/17/16 20:01 Dose: 200 mg Guaifenesin (Mucinex La) 600 mg PO Q12 [facility] Last Admin: 08/17/16 20:00 Dose: 600 mg Levothyroxine Sodium (Synthroid) 88 mcg PO DAILY@0630 [facility] Last Admin: 08/17/16 06:53 Dose: 88 mcg Lidocaine (Lidoderm) 2 ea TD DAILY [facility] Last Admin: 08/17/16 08:52 Dose: 2 ea Morphine Sulfate (Morphine) 4 mg IVP Q2 PRN PRN Reason: Pain, severe (8-10) Last Admin: 08/17/16 19:57 Dose: 4 mg Pantoprazole Sodium (Protonix Ec Tab) 40 mg PO DAILY [facility] Last Admin: 08/17/16 08:51 Dose: 40 mg Tramadol HCl (Ultram) 50 mg PO Q4 PRN PRN Reason: Pain, moderate (4-7) Last Admin: 08/16/16 06:47 Dose: 50 mg - Labs Labs: 08/13/16 07:25 08/13/16 07:25 PT 13.5 SECONDS (9.6-11.2) H 08/11/16 05:45 INR 1.30 (0.92-1.08) H 08/11/16 05:45 APTT 32.0 SECONDS (23.3-32.5) 08/06/16 06:50 - Head Exam Head Exam: ATRAUMATIC - Eye Exam Eye Exam: Normal appearance - ENT Exam ENT Exam: Mucous Membranes Dry - Respiratory Exam Respiratory Exam: NORMAL BREATHING PATTERN - Cardiovascular Exam Cardiovascular Exam: +S1, +S2 - GI/Abdominal Exam GI & Abdominal Exam: Normal Bowel Sounds - Extremities Exam Extremities Exam: Normal Inspection Assessment and Plan (1) Lung cancer Assessment & Plan: pathology consistent with non small cell lung cancer stage IV with bone mets and pathologic fracture discussed at length with Dr. Mondragon today treatment options which include neurosurgery, radiotherapy, systemic therapy (chemo and immunotherapy), hospice pt to discuss things further with family Status: Acute (2) Anemia Status: Acute
[2016-08-18] MEDS: Levothyroxine 88 MCG TAB PO SCH (06:15)
[2016-08-18] MEDS: Albuterol 0.083% Inhal Sol (2.5 mg/3 mL) UD INH SCH ×2 (07:13→19:07)
[2016-08-18] MEDS: guaiFENesin 600 mg ER Tab PO SCH ×2 (09:23→20:40)
[2016-08-18] MEDS: Enoxaparin 40 mg Syringe SC SCH (09:24)
[2016-08-18] MEDS: Pantoprazole 40 mg EC Tab PO SCH (09:24)
[2016-08-18] MEDS: Lidocaine 5% Patch TD SCH (09:25)
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
[2016-08-18] MEDS ORDERED: Dexamethasone 4 MG in Sodium Chloride 0.9% 50 ML IVPB STA (12:52)
[2016-08-19 07:12] LABS: BASO % 0.2 % (0.0-2.0); HEMATOCRIT 32.5 % (34.0-47.0); LYMPH # 0.8 K/uL (1.0-4.3); LYMPH % 5.8 % (20.0-40.0); MEAN CELL VOLUME 79.1 fl (81.0-99.0); MEAN CORPUSCULAR HEMOGLOBIN 25.5 pg (27.0-31.0); MEAN CORPUSCULAR HGB CONC 32.2 g/dL (33.0-37.0); MEAN PLATELET VOLUME 6.9 fl (7.2-11.7); MONO # 0.2 K/uL (0.0-0.8); MONO % 1.7 % (0.0-10.0); NEUT # 12.8 K/uL (1.8-7.0); NEUT % 92.3 % (50.0-75.0); PLATELET COUNT 597 K/uL (130-400); RED CELL DISTRIBUTION WIDTH 17.2 % (11.5-14.5); WHITE BLOOD COUNT 13.9 K/uL (4.8-10.8)
[2016-08-19 07:14] LABS: ALB/GLOB RATIO 0.8 (1.0-2.1); ALKALINE PHOSPHATASE 116 U/L (38-126); ALT/SGPT 69 U/L (9-52); AST/SGOT 77 U/L (14-36); BILIRUBIN,TOTAL 0.6 mg/dl (0.2-1.3); BLOOD UREA NITROGEN 18 mg/dl (7-17); CALCIUM 10.6 mg/dL (8.4-10.2); CARBON DIOXIDE 32 mmol/L (22-30); CHLORIDE 94 mmol/L (98-107); GFR AFRICAN-AMERICAN > 60; GLUCOSE,RANDOM 144 mg/dL (65-105); POTASSIUM 4.8 MMOL/L (3.6-5.0); SODIUM 137 mmol/l (132-148); TOTAL PROTEIN 7.8 G/DL (6.3-8.2)
[2016-08-19] MEDS: Levothyroxine 88 MCG TAB PO SCH (07:19)
[2016-08-19] MEDS: Albuterol 0.083% Inhal Sol (2.5 mg/3 mL) UD INH SCH ×2 (07:21→20:00)
[2016-08-19] MEDS: guaiFENesin 600 mg ER Tab PO SCH ×2 (09:16→22:22)
[2016-08-19] MEDS: Enoxaparin 40 mg Syringe SC SCH (09:16)
[2016-08-19] MEDS: Lidocaine 5% Patch TD SCH (09:17)
[2016-08-19] MEDS: Pantoprazole 40 mg EC Tab PO SCH (09:17)
[2016-08-19 11:18] LABS: NEUTROPHIL 94 % (42-75); TOTAL CELLS COUNTED 100
[2016-08-19 11:20] LABS: LARGE PLATELETS PRESENT
[2016-08-19 11:21] LABS: GIANT PLATELETS PRESENT
[2016-08-19] MEDS ORDERED: Magnesium Hydroxide Susp 30 ml UD PO PRN (14:36)
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
[2016-08-20] MEDS: Levothyroxine 88 MCG TAB PO SCH (06:56)
[2016-08-20] MEDS: Albuterol 0.083% Inhal Sol (2.5 mg/3 mL) UD INH SCH ×2 (08:52→19:42)
[2016-08-20] MEDS: Lidocaine 5% Patch TD SCH (10:19)
[2016-08-20] MEDS: Enoxaparin 40 mg Syringe SC SCH (10:20)
[2016-08-20] MEDS: guaiFENesin 600 mg ER Tab PO SCH ×2 (10:21→20:27)
[2016-08-20] MEDS: Pantoprazole 40 mg EC Tab PO SCH (10:22)
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
--- NOTE | 2016-08-20 18:08 | CP.PCM.PN ---
Subjective - Date & Time of Evaluation Date of Evaluation: 08/20/16 Time of Evaluation: 17:00 - Subjective Subjective: Patient has back pain, family at bedside Objective - Vital Signs/Intake and Output Vital Signs (last 24 hours): Temp Pulse Resp BP Pulse Ox 97.6 F 78 20 104/69 95 08/20/16 09:00 08/20/16 09:00 08/20/16 09:00 08/20/16 09:00 08/20/16 09:00 - Medications Medications: Current Medications Albuterol Sulfate (Albuterol 0.083% Inhal Martha (2.5 Mg/3 Ml) Ud) 2.5 mg INH RBID [facility] Last Admin: 08/20/16 08:52 Dose: 2.5 mg Atorvastatin Calcium (Lipitor) 20 mg PO DAILY [facility] Last Admin: 08/20/16 10:21 Dose: 20 mg Cyclobenzaprine HCl (Flexeril) 10 mg PO Q8 [facility] Last Admin: 08/20/16 17:32 Dose: 10 mg Dexamethasone (Decadron) 4 mg PO Q12 [facility] Last Admin: 08/20/16 10:18 Dose: 4 mg Docusate Sodium (Colace) 100 mg PO BID [facility] Last Admin: 08/20/16 17:33 Dose: 100 mg Enoxaparin Sodium (Lovenox) 40 mg SC DAILY [facility] PRN Reason: Protocol Last Admin: 08/20/16 10:20 Dose: 40 mg Fentanyl (Duragesic) 1 patch TD Q3D [facility] PRN Reason: Protocol Last Admin: 08/19/16 10:19 Dose: 1 patch Ferrous Sulfate (Feosol) 325 mg PO BID [facility] Last Admin: 08/20/16 17:33 Dose: 325 mg Gabapentin (Neurontin) 200 mg PO Q12 [facility] Last Admin: 08/20/16 10:21 Dose: 200 mg Guaifenesin (Mucinex La) 600 mg PO Q12 [facility] Last Admin: 08/20/16 10:21 Dose: 600 mg Levothyroxine Sodium (Synthroid) 88 mcg PO DAILY@0630 [facility] Last Admin: 08/20/16 06:56 Dose: 88 mcg Lidocaine (Lidoderm) 2 ea TD DAILY [facility] Last Admin: 08/20/16 10:19 Dose: 2 ea Magnesium Hydroxide (Milk Of Magnesia) 30 ml PO DAILY [facility] PRN Reason: Constipation Last Admin: 08/19/16 17:26 Dose: 30 ml Morphine Sulfate (Morphine) 2 mg IVP Q2 PRN PRN Reason: Pain, severe (8-10) Last Admin: 08/20/16 17:30 Dose: 2 mg Pantoprazole Sodium (Protonix Ec Tab) 40 mg PO DAILY [facility] Last Admin: 08/20/16 10:22 Dose: 40 mg Tramadol HCl (Ultram) 50 mg PO Q4 PRN PRN Reason: Pain, moderate (4-7) Last Admin: 08/20/16 00:13 Dose: 50 mg - Labs Labs: 08/19/16 06:30 08/19/16 06:30 PT 13.5 SECONDS (9.6-11.2) H 08/11/16 05:45 INR 1.30 (0.92-1.08) H 08/11/16 05:45 APTT 32.0 SECONDS (23.3-32.5) 08/06/16 06:50 - Head Exam Head Exam: ATRAUMATIC - Eye Exam Eye Exam: Normal appearance - ENT Exam ENT Exam: Mucous Membranes Dry - Respiratory Exam Respiratory Exam: NORMAL BREATHING PATTERN - Cardiovascular Exam Cardiovascular Exam: +S1, +S2 - GI/Abdominal Exam GI & Abdominal Exam: Normal Bowel Sounds - Extremities Exam Extremities Exam: Normal Inspection Assessment and Plan (1) Cancer of unknown origin Assessment & Plan: stage IV with bone metastasis L5 lesion biopsy shows poorly differentiated cancer of unknown primary; possible pancreaticobiliary vs upper GI primary pathology and treatment options discussed at length with family they are agreeable to rehab and will consider treatment options; for now they think they will choose hospice after rehab Status: Acute (2) Anemia Assessment & Plan: chronic disease Status: Acute
[2016-08-21] MEDS: Levothyroxine 88 MCG TAB PO SCH (06:41)
[2016-08-21] MEDS: Albuterol 0.083% Inhal Sol (2.5 mg/3 mL) UD INH SCH (07:09)
[2016-08-21 07:20] LABS: HEMATOCRIT 28.2 % (34.0-47.0); MEAN CELL VOLUME 78.8 fl (81.0-99.0); MEAN CORPUSCULAR HEMOGLOBIN 26.1 pg (27.0-31.0); MEAN CORPUSCULAR HGB CONC 33.2 g/dL (33.0-37.0); WHITE BLOOD COUNT 13.1 K/uL (4.8-10.8)
[2016-08-21 07:43] LABS: BLOOD UREA NITROGEN 24 mg/dl (7-17); CALCIUM 9.8 mg/dL (8.4-10.2); CARBON DIOXIDE 31 mmol/L (22-30); CHLORIDE 98 mmol/L (98-107); GFR AFRICAN-AMERICAN > 60; GLUCOSE,RANDOM 137 mg/dL (65-105); POTASSIUM 3.9 MMOL/L (3.6-5.0); SODIUM 137 mmol/l (132-148)
[2016-08-21 08:12] LABS: CARCINOEMBRYONIC ANTIGEN 95.2 ng/mL (0-3.0)
[2016-08-21] MEDS: Lidocaine 5% Patch TD SCH (09:17)
[2016-08-21] MEDS: Enoxaparin 40 mg Syringe SC SCH (09:21)
[2016-08-21] MEDS: guaiFENesin 600 mg ER Tab PO SCH ×2 (09:22→21:00)
[2016-08-21] MEDS: Pantoprazole 40 mg EC Tab PO SCH (09:22)
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
[2016-08-21] MEDS ORDERED: Albuterol 0.083% Inhal Sol (2.5 mg/3 mL) UD ONE (19:02)
[2016-08-21] MEDS ORDERED: Albuterol 0.083% Inhal Sol (2.5 mg/3 mL) UD INH PRN (19:22)
[2016-08-21 19:49] LABS: CA 19-9 3690 U/mL (0-37)
[2016-08-21] MEDS: Mag&Al/Simet/Diphen/Lido 237 ML KIT PO SCH (21:01)
[2016-08-22] MEDS: Levothyroxine 88 MCG TAB PO SCH (06:45)
[2016-08-22 07:52] VITALS: O2SAT 99
[2016-08-22] MEDS: Enoxaparin 40 mg Syringe SC SCH (08:50)
[2016-08-22] MEDS: guaiFENesin 600 mg ER Tab PO SCH (08:50)
[2016-08-22] MEDS: Pantoprazole 40 mg EC Tab PO SCH (08:51)
[2016-08-22] MEDS: Mag&Al/Simet/Diphen/Lido 237 ML KIT PO SCH ×2 (08:52→14:05)
[2016-08-22] MEDS: Lidocaine 5% Patch TD SCH (08:55)
--- NOTE | 2016-08-22 10:05 | CP.PCM.PN ---
Subjective - Date & Time of Evaluation Date of Evaluation: 08/22/16 Time of Evaluation: 10:05 - Subjective Subjective: S- pt comfortable at bedrest/ minimal pain L upper ext Objective - Vital Signs/Intake and Output Vital Signs (last 24 hours): Temp Pulse Resp BP Pulse Ox 97.5 F L 87 18 119/77 99 08/22/16 07:52 08/22/16 07:52 08/22/16 07:52 08/22/16 07:52 08/22/16 07:52 - Medications Medications: Current Medications Albuterol Sulfate (Albuterol 0.083% Inhal Martha (2.5 Mg/3 Ml) Ud) 2.5 mg INH RQ6 PRN PRN Reason: Shortness of Breath Last Admin: 08/21/16 19:15 Dose: 2.5 mg Atorvastatin Calcium (Lipitor) 20 mg PO DAILY [facility] Last Admin: 08/22/16 08:51 Dose: 20 mg Cyclobenzaprine HCl (Flexeril) 10 mg PO Q8 [facility] Last Admin: 08/22/16 08:51 Dose: 10 mg Dexamethasone (Decadron) 4 mg PO Q12 [facility] Last Admin: 08/22/16 08:52 Dose: 4 mg Docusate Sodium (Colace) 100 mg PO BID [facility] Last Admin: 08/22/16 08:51 Dose: 100 mg Enoxaparin Sodium (Lovenox) 40 mg SC DAILY [facility] PRN Reason: Protocol Last Admin: 08/22/16 08:50 Dose: 40 mg Fentanyl (Duragesic) 1 patch TD Q3D [facility] PRN Reason: Protocol Last Admin: 08/19/16 10:19 Dose: 1 patch Ferrous Sulfate (Feosol) 325 mg PO BID [facility] Last Admin: 08/22/16 09:12 Dose: 325 mg Gabapentin (Neurontin) 200 mg PO Q12 [facility] Last Admin: 08/22/16 08:51 Dose: 200 mg Guaifenesin (Mucinex La) 600 mg PO Q12 [facility] Last Admin: 08/22/16 08:50 Dose: 600 mg Levothyroxine Sodium (Synthroid) 88 mcg PO DAILY@0630 [facility] Last Admin: 08/22/16 06:45 Dose: 88 mcg Lidocaine (Lidoderm) 2 ea TD DAILY [facility] Last Admin: 08/22/16 08:55 Dose: 2 ea Magnesium Hydroxide (Milk Of Magnesia) 30 ml PO DAILY PRN PRN Reason: Constipation Last Admin: 08/19/16 17:26 Dose: 30 ml Morphine Sulfate (Morphine) 2 mg IVP Q2 PRN PRN Reason: Pain, severe (8-10) Last Admin: 08/22/16 08:47 Dose: 2 mg Pantoprazole Sodium (Protonix Ec Tab) 40 mg PO DAILY [facility] Last Admin: 08/22/16 08:51 Dose: 40 mg Saliva Substitute (First Magic Mouthwash) 5 ml PO QID [facility] Last Admin: 08/22/16 08:52 Dose: 5 ml Tramadol HCl (Ultram) 50 mg PO Q4 PRN PRN Reason: Pain, moderate (4-7) Last Admin: 08/20/16 00:13 Dose: 50 mg - Labs Labs: 08/21/16 06:54 08/21/16 06:54 PT 13.5 SECONDS (9.6-11.2) H 08/11/16 05:45 INR 1.30 (0.92-1.08) H 08/11/16 05:45 APTT 32.0 SECONDS (23.3-32.5) 08/06/16 06:50 - Skin Additional comments: Objetcive Musculoskeletal stance/gait- defrred pt still complaining of pain in L/S spine L humeral incision intact N/V inbtact l upper ext Assessment and Plan - Assessment and Plan (Free Text) Assessment: A- s/pm ORIF displaced pathologic fx L huimerus Mass lower lumbar spine P- as per Neurosurgeon -orthopedically stable for d/c with respect to L humerus fracture and stabilization
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
[2016-08-22 17:02] VITALS: BP 119/77; PULSE 87; RESP 18; TEMP 97.5
== END 2016-08-22 17:10 | DRG 559 ==
LOC: H.ER 06:04 → INTOOBSV 07:23 → H.ERHOLD 07:23 → H.TEL 10:36 → H.MEDSURG1 08-04 10:20 → OBSVTOIN 08-04 12:19 → H.MEDSURG1 08-06 12:19
PROVIDERS: ADMIT Hospitalist; ATTEND Hospitalist
PROC: 01N60ZZ Release Radial Nerve, Open Approach (ICD-10-PCS; 2016-08-06)
PROC: 3E0T3BZ Introduction of Anesthetic Agent into Peripheral Nerves and Plexi, Percutaneous Approach (ICD-10-PCS; 2016-08-06)
PROC: 0PSG04Z Reposition Left Humeral Shaft with Internal Fixation Device, Open Approach (ICD-10-PCS; principal; 2016-08-06 07:45)
PROC: 0BB58ZX Excision of Right Middle Lobe Bronchus, Via Natural or Artificial Opening Endoscopic, Diagnostic (ICD-10-PCS; 2016-08-10)
PROC: 0QB03ZX Excision of Lumbar Vertebra, Percutaneous Approach, Diagnostic (ICD-10-PCS; 2016-08-11)
DX: S42.342A Displaced spiral fracture of shaft of humerus, left arm, initial encounter for closed fracture (principal); J18.9 Pneumonia, unspecified organism; C79.51 Secondary malignant neoplasm of bone; D62 Acute posthemorrhagic anemia; E87.6 Hypokalemia; J98.11 Atelectasis; M84.422A Pathological fracture, left humerus, initial encounter for fracture; C80.1 Malignant (primary) neoplasm, unspecified; E78.5 Hyperlipidemia, unspecified; E78.00 Pure hypercholesterolemia, unspecified; E03.9 Hypothyroidism, unspecified; Z87.891 Personal history of nicotine dependence; S54.22XA Injury of radial nerve at forearm level, left arm, initial encounter; D63.0 Anemia in neoplastic disease; I10 Essential (primary) hypertension; K59.00 Constipation, unspecified